=== PATIENT | female | born 1960 | race Asian ===

== ENCOUNTER 2017-05-30 07:32 | Inpatient (IN) | payer OTHER ==
[2017-05-30 09:03] LABS: ADD MAN DIFF? NO
[2017-05-30 09:05] LABS: ABNORMAL IP MESSAGE 1; BASOPHILS % 0.2 % (0.0-2.0); HEMOGLOBIN 10.8 g/dl (12.0-16.0); LYMPHOCYTES # 0.3 10^3/ul (0.8-2.9); LYMPHOCYTES % 3.7 % (15.0-51.0); MEAN CORPUSCULAR HEMOGLOBIN 29.8 pg (29.0-33.0); MEAN CORPUSCULAR VOLUME 99.2 fl (82.0-101.0); MONOCYTE # 0.7 10^3/ul (0.3-0.9); MONOCYTES % 7.8 % (0.0-11.0); NEUTROPHIL # 7.5 10^3/ul (1.6-7.5); NEUTROPHILS % 87.8 % (39.0-77.0); PLATELET COUNT 171 10^3/UL (140-415); RED BLOOD COUNT 3.63 10^6/ul (4.20-5.40); RED CELL DISTRIBUTION WIDTH 20.4 % (11.5-14.5)
[2017-05-30 09:05] LABS: WHITE BLOOD COUNT 8.5 10^3/ul (4.8-10.8)
[2017-05-30 09:11] LABS: POSITIVE DIFF @See below
[2017-05-30 09:36] LABS: ALANINE AMINOTRANSFERASE 30 IU/L (13-69); ALBUMIN 3.5 g/dl (3.3-4.9); ALKALINE PHOSPHATASE 273 IU/L (42-121); ANION GAP 14 (8-16); ASPARTATE AMINO TRANSFERASE 82 IU/L (15-46); BILIRUBIN,INDIRECT 0.3 mg/dl (0-1.1); BILIRUBIN,TOTAL 0.3 mg/dl (0.2-1.3); BLOOD UREA NITROGEN 43 mg/dl (7-20); CALCIUM 8.5 mg/dl (8.4-10.2); CARBON DIOXIDE 27 mmol/L (21-31); CHLORIDE 103 mmol/L (97-110); CREATININE 1.02 mg/dl (0.44-1.00); GLUCOSE 131 mg/dl (70-220); POTASSIUM 5.5 mmol/L (3.5-5.1); SODIUM 138 mmol/L (135-144); TOTAL PROTEIN 8.5 g/dl (6.1-8.1)
[2017-05-30 09:54] LABS: TROPONIN-I 0.143 ng/ml (0.00-0.12)
[2017-05-30 10:58] LABS: B-TYPE NATRIURETIC PEPTIDE 62900 PG/ML (0-125)
[2017-05-30] MEDS: FUROSEMIDE 40 MG INJ IV (13:54)
[2017-05-30 16:07] LABS: TROPONIN-I 0.121 ng/ml (0.00-0.12)
[2017-05-30] MEDS ORDERED: ONDANSETRON 4 MG INJ IV (17:00)
[2017-05-30] MEDS ORDERED: ACETAMINOPHEN 325 MG TAB PO (17:00)
[2017-05-30 17:36] LABS: INR 2.23; PROTIME 25.3 Sec (11.9-14.9)
[2017-05-30] MEDS: ACETAMINOPHEN 325 MG TAB GTB (19:15)
[2017-05-30] MEDS: SUCRALFATE 1 GM TAB GTB (19:16)
[2017-05-30 21:27] LABS: AADO2 Arterial 108.4 mmHg (7.0-24.0); Allen Test ACCEPTAB; Arterial Base Excess 5.9 mmol/L (-3.0-3); Arterial Blood Gas Oxygen Sat 98.6 mmHG (95.0-98.0); Arterial COHb 0.3 % (0.0-3.0); Arterial HCO3 29.7 mmol/L (22.0-26.0); Arterial MetHb 0.3 % (0.0-1.5); Arterial Total Hemglobin 10.5 g/dl (12.0-18.0); Arterial pCO2 40.2 mmhg (35-45); MODE VENT - AC; Site Right Radial
[2017-05-31] MEDS: SOD CHLORIDE 0.9% 1,000 ML IV (00:29)
[2017-05-31] MEDS: SUCRALFATE 1 GM TAB GTB ×5 (00:55→22:13)
[2017-05-31] MEDS: BUMETANIDE 1 MG TAB GTB (00:55)
[2017-05-31] MEDS: HYDROCODONE/APAP (5/325) TAB GTB ×2 (00:55→11:42)
[2017-05-31] MEDS: MAGNESIUM HYDROXIDE 30ML CUP GTB ×2 (00:55→21:00)
[2017-05-31] MEDS: FERROUS SULFATE 60 MG/ML 5ML CUP PO ×4 (00:56→22:12)
[2017-05-31] MEDS: DOCUSATE SODIUM 100 MG CAP PO ×2 (00:56→22:13)
[2017-05-31] MEDS: SENNA TAB GTB ×2 (00:56→22:13)
[2017-05-31] MEDS: ATORVASTATIN 20 MG TAB GTB ×2 (00:56→22:13)
[2017-05-31 06:18] LABS: ADD MAN DIFF? NO
[2017-05-31 06:31] LABS: INR 2.33; PROTIME 26.2 Sec (11.9-14.9)
[2017-05-31 06:40] LABS: ABNORMAL IP MESSAGE 1; BASOPHIL # 0.1 10^3/ul (0.0-0.1); BASOPHILS % 0.9 % (0.0-2.0); EOSINOPHILS # 0.1 10^3/ul (0.0-0.5); EOSINOPHILS % 1.9 % (0.0-7.0); HEMATOCRIT 29.4 % (37.0-47.0); HEMOGLOBIN 9.4 g/dl (12.0-16.0); LYMPHOCYTES # 0.5 10^3/ul (0.8-2.9); LYMPHOCYTES % 10.2 % (15.0-51.0); MEAN CORPUSCULAR HEMOGLOBIN 30.1 pg (29.0-33.0); MEAN CORPUSCULAR VOLUME 94.2 fl (82.0-101.0); MEAN PLATELET VOLUME 10.9 fl (7.4-10.4); MONOCYTE # 0.7 10^3/ul (0.3-0.9); MONOCYTES % 12.5 % (0.0-11.0); NEUTROPHIL # 3.9 10^3/ul (1.6-7.5); NEUTROPHILS % 74.1 % (39.0-77.0); PLATELET COUNT 142 10^3/UL (140-415); RED BLOOD COUNT 3.12 10^6/ul (4.20-5.40); RED CELL DISTRIBUTION WIDTH 19.8 % (11.5-14.5)
[2017-05-31 06:40] LABS: WHITE BLOOD COUNT 5.3 10^3/ul (4.8-10.8)
[2017-05-31 07:04] LABS: ANION GAP 13 (8-16); BLOOD UREA NITROGEN 43 mg/dl (7-20); CALCIUM 8.2 mg/dl (8.4-10.2); CARBON DIOXIDE 31 mmol/L (21-31); CHLORIDE 103 mmol/L (97-110); CREATININE 0.97 mg/dl (0.44-1.00); GLUCOSE 118 mg/dl (70-220); MAGNESIUM 2.2 mg/dl (1.7-2.5); POTASSIUM 3.7 mmol/L (3.5-5.1); SODIUM 143 mmol/L (135-144)
[2017-05-31 07:27] LABS: POSITIVE DIFF @See below
[2017-05-31] MEDS: AMLODIPINE 5 MG TAB GTB (09:00)
[2017-05-31] MEDS ORDERED: BENAZEPRIL 5 MG TAB GTB (09:00)
[2017-05-31] MEDS: NA PHOSPHATE/BIPHOS 133 ML ENEMA PR (09:00)
[2017-05-31] MEDS: BISACODYL 10 MG SUPP PR (09:00)
[2017-05-31] MEDS ORDERED: NON-FORMULARY/PATIENT OWN MED (Amino Acids/Protein Hydrolys (Pro-Stat Liquid) 30 ML) GTB (09:00)
[2017-05-31] MEDS ORDERED: NON-FORMULARY/PATIENT OWN MED (Cran/Vitc/Mannose/Inulin/Brom (Uti-Stat Liquid) 30 ML) GTB (09:00)
[2017-05-31] MEDS: PANTOPRAZOLE (EC) 40 MG TAB PO (10:35)
[2017-05-31] MEDS: BUMETANIDE 1 MG TAB PO (10:36)
[2017-05-31] MEDS: SEVELAMER 800 MG TAB GTB (10:36)
[2017-05-31] MEDS: MULTIVITAMINS/MINERALS TAB GTB (10:36)
[2017-05-31] MEDS: ASCORBIC ACID 500 MG TAB GTB (10:39)
[2017-05-31] MEDS ORDERED: PENDING SANTYL ORDER FOR WOUND CARE XX (15:00)
[2017-05-31 18:14] LABS: ADD UMIC YES; UR AMORPHOUS CRYSTAL FEW /HPF (NONE SEEN); UR ASCORBIC ACID 40 mg/dL (NEGATIVE); UR BACTERIA FEW /HPF (NONE SEEN); UR BILIRUBIN (Dip) NEGATIVE (NEGATIVE); UR BLOOD (Dip) 1+ mg/dL (NEGATIVE); UR CLARITY CLOUDY (CLEAR); UR COLOR YELLOW (YELLOW); UR GLUCOSE (Dip) NEGATIVE (NEGATIVE); UR KETONES (Dip) NEGATIVE (NEGATIVE); UR LEUKOCYTE ESTERASE (Dip) 3+ Leu/ul (NEGATIVE); UR NITRITE (Dip) NEGATIVE (NEGATIVE); UR RBC 6 /HPF (0-5); UR SPECIFIC GRAVITY (Dip) 1.009 (1.003-1.030); UR TOTAL PROTEIN (Dip) NEGATIVE (NEGATIVE); UR UROBILINOGEN (Dip) NEGATIVE (NEGATIVE); UR WBC 70 /HPF (0-5)
[2017-05-31 18:20] LABS: SODIUM,URINE RANDOM 91 mmol/L (30-90)
[2017-05-31 18:20] LABS: CREATININE,URINE RANDOM 24.35 mg/dl (20-320)
[2017-05-31] MEDS: WARFARIN 2 MG TAB GTB (18:29)
[2017-05-31] MEDS: WARFARIN 1 MG TAB PO (18:30)
[2017-06-01] MEDS: MULTIVITAMINS/MINERALS TAB GTB (08:52)
[2017-06-01] MEDS: PANTOPRAZOLE (EC) 40 MG TAB PO (08:52)
[2017-06-01] MEDS: FERROUS SULFATE 60 MG/ML 5ML CUP PO ×3 (08:52→21:34)
[2017-06-01] MEDS: ASCORBIC ACID 500 MG TAB GTB (08:52)
[2017-06-01] MEDS: SUCRALFATE 1 GM TAB GTB ×4 (08:52→21:34)
[2017-06-01] MEDS: SEVELAMER 800 MG TAB GTB (08:52)
[2017-06-01] MEDS: AMLODIPINE 5 MG TAB GTB (08:54)
[2017-06-01] MEDS: BISACODYL 10 MG SUPP PR (08:54)
[2017-06-01 08:57] LABS: ADD MAN DIFF? NO
[2017-06-01 09:12] LABS: ABNORMAL IP MESSAGE 1; BASOPHILS % 0.7 % (0.0-2.0); EOSINOPHILS # 0.3 10^3/ul (0.0-0.5); EOSINOPHILS % 4.6 % (0.0-7.0); HEMATOCRIT 29.2 % (37.0-47.0); HEMOGLOBIN 9.2 g/dl (12.0-16.0); LYMPHOCYTES # 0.5 10^3/ul (0.8-2.9); MEAN CORPUSCULAR HEMOGLOBIN 29.9 pg (29.0-33.0); MEAN CORPUSCULAR HGB CONC 31.5 g/dl (32.0-37.0); MEAN CORPUSCULAR VOLUME 94.8 fl (82.0-101.0); MEAN PLATELET VOLUME 11.3 fl (7.4-10.4); MONOCYTE # 0.7 10^3/ul (0.3-0.9); MONOCYTES % 12.5 % (0.0-11.0); PLATELET COUNT 147 10^3/UL (140-415); RED BLOOD COUNT 3.08 10^6/ul (4.20-5.40); RED CELL DISTRIBUTION WIDTH 19.6 % (11.5-14.5)
[2017-06-01 09:12] LABS: WHITE BLOOD COUNT 5.5 10^3/ul (4.8-10.8)
[2017-06-01 09:20] LABS: POSITIVE DIFF @See below
[2017-06-01 09:22] LABS: INR 2.22; PROTIME 25.2 Sec (11.9-14.9)
[2017-06-01 09:30] LABS: ANION GAP 11 (8-16); BLOOD UREA NITROGEN 38 mg/dl (7-20); CALCIUM 8.2 mg/dl (8.4-10.2); CARBON DIOXIDE 31 mmol/L (21-31); CHLORIDE 104 mmol/L (97-110); CREATININE 0.87 mg/dl (0.44-1.00); GLUCOSE 101 mg/dl (70-220); POTASSIUM 3.6 mmol/L (3.5-5.1); SODIUM 142 mmol/L (135-144)
[2017-06-01 09:34] LABS: PHOSPHORUS 2.4 mg/dl (2.5-4.9)
[2017-06-01 09:34] LABS: MAGNESIUM 2.1 mg/dl (1.7-2.5)
[2017-06-01] MEDS: COLLAGENASE 30 GM TUBE TOP (12:23)
[2017-06-01] MEDS: WARFARIN 1 MG TAB PO (17:41)
[2017-06-01] MEDS: WARFARIN 2 MG TAB GTB (17:42)
[2017-06-01] MEDS: DOCUSATE SODIUM 100 MG CAP PO (21:34)
[2017-06-01] MEDS: ATORVASTATIN 20 MG TAB GTB (21:34)
[2017-06-01] MEDS: SENNA TAB GTB (21:34)
[2017-06-01] MEDS: MAGNESIUM HYDROXIDE 30ML CUP GTB (21:35)
[2017-06-01] MEDS: HYDROCODONE/APAP (5/325) TAB GTB (23:04)
[2017-06-02] MEDS: NA PHOSPHATE/BIPHOS 133 ML ENEMA PR (08:08)
[2017-06-02] MEDS: BISACODYL 10 MG SUPP PR (09:00)
[2017-06-02] MEDS: SUCRALFATE 1 GM TAB GTB ×2 (09:08→12:30)
[2017-06-02] MEDS: MULTIVITAMINS/MINERALS TAB GTB (09:08)
[2017-06-02] MEDS: SEVELAMER 800 MG TAB GTB (09:08)
[2017-06-02] MEDS: ASCORBIC ACID 500 MG TAB GTB (09:08)
[2017-06-02] MEDS: PANTOPRAZOLE (EC) 40 MG TAB PO (09:08)
[2017-06-02] MEDS: FERROUS SULFATE 60 MG/ML 5ML CUP PO ×2 (09:08→12:30)
[2017-06-02] MEDS: COLLAGENASE 30 GM TUBE TOP (09:09)
[2017-06-02] MEDS: AMLODIPINE 5 MG TAB GTB (09:09)
[2017-06-02 09:23] LABS: PROTIME 30.3 Sec (11.9-14.9); PT RATIO 2.4
[2017-06-02] MEDS: MUPIROCIN 2% 22 GM OINT TOP (12:30)
[2017-06-02] MEDS: INFLUENZA VIRUS VACCINE 0.5 ML (DISPENSING) IM* (12:35)
== END 2017-06-02 16:10 | DRG 280 ==
LOC: TEL 16:56 → E/R 07:32
PROC: 5A1945Z Respiratory Ventilation, 24-96 Consecutive Hours (ICD-10-PCS; principal; 2017-05-30)
DX: I21.A1 Myocardial infarction type 2 (principal); L89.154 Pressure ulcer of sacral region, stage 4; I50.33 Acute on chronic diastolic (congestive) heart failure; N17.9 Acute kidney failure, unspecified; J96.10 Chronic respiratory failure, unspecified whether with hypoxia or hypercapnia; I11.0 Hypertensive heart disease with heart failure; I27.20 Pulmonary hypertension, unspecified; Z95.2 Presence of prosthetic heart valve; I48.2 Chronic atrial fibrillation; K29.70 Gastritis, unspecified, without bleeding; Z93.0 Tracheostomy status; Z93.1 Gastrostomy status; Z95.0 Presence of cardiac pacemaker
CPT/HCPCS: 36600; 71010; 80048; 80053; 81001; 82540; 82803; 83735; 83880; 84100; 84155; 84300; 84484; 85025; 85610; 87081; 90686; 93005; 94002; 94003

== ENCOUNTER 2017-07-19 20:25 | Emergency (ER) | payer OTHER ==
[2017-07-19] MEDS: LEVALBUTEROL (NEB) 1.25 MG/0.5 ML AMP HHN (21:25)
[2017-07-19] MEDS: morphine 4 MG/ML VIAL IV (22:33)
[2017-07-20] MEDS: morphine 4 MG/ML VIAL IV (02:49)
[2017-07-20] MEDS: ONDANSETRON (ODT) 4 MG TAB ODT (07:38)
[2017-07-20] MEDS: HYDROCODONE/APAP (10/325) TAB PO (07:38)
== END 2017-07-20 17:56 | disposition home or self-care (01) ==
LOC: E/R 07-20 17:56
DX: I27.0 Primary pulmonary hypertension (principal); I25.10 Atherosclerotic heart disease of native coronary artery without angina pectoris; E11.9 Type 2 diabetes mellitus without complications; I50.9 Heart failure, unspecified; I25.2 Old myocardial infarction; Z79.01 Long term (current) use of anticoagulants
CPT/HCPCS: 94002; 94003; 94644; 96374; 96376; 99284-25

== ENCOUNTER 2017-09-26 06:05 | Inpatient (IN) | payer OTHER ==
[2017-09-26 07:11] LABS: ABNORMAL IP MESSAGE 1; HEMOGLOBIN 8.9 g/dl (12.0-16.0); MEAN CORPUSCULAR HEMOGLOBIN 28.5 pg (29.0-33.0); MEAN CORPUSCULAR HGB CONC 30.7 g/dl (32.0-37.0); MEAN CORPUSCULAR VOLUME 92.9 fl (82.0-101.0); NUCLEATED RED BLOOD CELLS% 0.1 /100WBC (0.0-0.0); PLATELET COUNT 173 10^3/UL (140-415); RED BLOOD COUNT 3.12 10^6/ul (4.20-5.40); RED CELL DISTRIBUTION WIDTH 17.6 % (11.5-14.5)
[2017-09-26 07:11] LABS: WHITE BLOOD COUNT 15.5 10^3/ul (4.8-10.8)
[2017-09-26 07:23] LABS: ADD MAN DIFF? YES; POSITIVE DIFF @See below
[2017-09-26] MEDS: SOD CHLORIDE 0.9% IV (07:23)
[2017-09-26] MEDS: PIPER-TAZO 3.375 GM IV (PMX) 100 ML IVPB ×2 (07:23→12:00)
[2017-09-26 07:37] LABS: INR 3.82; PROTIME 38.9 Sec (11.9-14.9)
[2017-09-26 07:40] LABS: ALANINE AMINOTRANSFERASE 12 IU/L (13-69); ALBUMIN 3.6 g/dl (3.3-4.9); ALKALINE PHOSPHATASE 356 IU/L (42-121); ANION GAP 22 (8-16); ASPARTATE AMINO TRANSFERASE 78 IU/L (15-46); BILIRUBIN,INDIRECT 0.8 mg/dl (0-1.1); BILIRUBIN,TOTAL 0.8 mg/dl (0.2-1.3); BLOOD UREA NITROGEN 40 mg/dl (7-20); CALCIUM 8.9 mg/dl (8.4-10.2); CARBON DIOXIDE 21 mmol/L (21-31); CHLORIDE 103 mmol/L (97-110); GLUCOSE 79 mg/dl (70-220); POTASSIUM 4.7 mmol/L (3.5-5.1); SODIUM 141 mmol/L (135-144); TOTAL PROTEIN 8.7 g/dl (6.1-8.1)
[2017-09-26 07:41] LABS: LACTIC ACID 7.4 mmol/L (0.5-2.0)
[2017-09-26 07:41] LABS: ETHANOL < 10.0 mg/dl; SALICYLATE < 1.0 mg/dl (5.0-30.0)
[2017-09-26 07:42] LABS: PARTIAL THROMBOPLASTIN TIME 97.7 Sec (25.0-35.0)
[2017-09-26 07:51] LABS: TROPONIN-I 0.052 ng/ml (0.00-0.12)
[2017-09-26 07:56] LABS: ANISOCYTOSIS 1+ (0-0); BAND NEUTROPHILS #M 4.1 10^3/ul (0.0-0.6); BAND NEUTROPHILS % (M) 27 % (0-4); BURR CELLS 1+ (0-0); EOSINOPHILS % (M) 1 % (0-7); GIANT THROMBO% (M) 1 % (0-0); LYMPHOCYTES #M 1.8 10^3/ul (0.8-2.9); LYMPHOCYTES % (M) 12 % (15-51); MONOCYTE #M 0.9 10^3/ul (0.3-0.9); MONOCYTES % (M) 6 % (0-11); PLATELET ESTIMATE NORMAL; POIKILOCYTOSIS 1+ (0-0); POLYCHROMASIA 3+ (0-0); SEGMENTED NEUTROPHILS (M) % 54 % (39-77); SMUDGE%M 2 % (0-0)
[2017-09-26 08:25] LABS: ADD UMIC YES; UR ASCORBIC ACID 40 mg/dL (NEGATIVE); UR BACTERIA FEW /HPF (NONE SEEN); UR BILIRUBIN (Dip) NEGATIVE (NEGATIVE); UR BLOOD (Dip) 1+ mg/dL (NEGATIVE); UR CLARITY SLIGHTLY CLOUDY (CLEAR); UR COLOR YELLOW (YELLOW); UR GLUCOSE (Dip) NEGATIVE (NEGATIVE); UR KETONES (Dip) TRACE mg/dL (NEGATIVE); UR LEUKOCYTE ESTERASE (Dip) TRACE Leu/ul (NEGATIVE); UR NITRITE (Dip) NEGATIVE (NEGATIVE); UR RBC 8 /HPF (0-5); UR SPECIFIC GRAVITY (Dip) 1.016 (1.003-1.030); UR TOTAL PROTEIN (Dip) 2+ mg/dl (NEGATIVE); UR UROBILINOGEN (Dip) 1+ mg/dL (NEGATIVE); UR WBC 8 /HPF (0-5)
[2017-09-26 08:37] LABS: LACTIC ACID 1.4 mmol/L (0.5-2.0)
[2017-09-26 08:38] LABS: AMPHETAMINE/METHAMPHETAMINE Negative (NEGATIVE); BARBITURATES Negative (NEGATIVE); BENZODIAZEPINES Negative (NEGATIVE); CANNABINOIDS Negative (NEGATIVE); COCAINE Negative (NEGATIVE); OPIATES Positive (NEGATIVE)
[2017-09-26] MEDS ORDERED: ONDANSETRON 4 MG INJ IV ×2 (10:30→11:30)
[2017-09-26] MEDS ORDERED: ACETAMINOPHEN 325 MG TAB PO (10:30)
[2017-09-26 13:08] LABS: CREATINE KINASE 54 IU/L (23-200)
[2017-09-26 13:08] LABS: GAMMA GLUTAMYL TRANSPEPTIDASE 330 IU/L (0-50)
[2017-09-26 13:20] LABS: CK INDEX 2.5; CK-MB 1.35 ng/ml (0.0-2.4); TROPONIN-I 0.079 ng/ml (0.00-0.12)
[2017-09-26] MEDS: SOD CHLORIDE 0.9% 1,000 ML IV ×2 (13:30→23:57)
[2017-09-26] MEDS: LORAZEPAM 2 MG INJ IV (13:57)
[2017-09-26] MEDS ORDERED: LORAZEPAM 2 MG INJ IV (14:00)
[2017-09-26] MEDS: DILTIAZEM 25 MG INJ IV (14:27)
[2017-09-26] MEDS ORDERED: VANCOMYCIN IV PER PHARMACY XX (14:30)
[2017-09-26] MEDS: VANCOMYCIN 1 GM 250 ML IVPB (14:32)
[2017-09-26] MEDS: LEVETIRACETAM 500 MG (PMX) 100 ML IVPB (14:41)
[2017-09-26 14:45] LABS: WHITE BLOOD COUNT 11.5 10^3/ul (4.8-10.8)
[2017-09-26 14:45] LABS: ABNORMAL IP MESSAGE 1; HEMATOCRIT 27.7 % (37.0-47.0); HEMOGLOBIN 8.7 g/dl (12.0-16.0); MEAN CORPUSCULAR HEMOGLOBIN 28.2 pg (29.0-33.0); MEAN CORPUSCULAR HGB CONC 31.4 g/dl (32.0-37.0); MEAN CORPUSCULAR VOLUME 89.6 fl (82.0-101.0); MEAN PLATELET VOLUME 10.7 fl (7.4-10.4); PLATELET COUNT 131 10^3/UL (140-415); RED BLOOD COUNT 3.09 10^6/ul (4.20-5.40); RED CELL DISTRIBUTION WIDTH 17.2 % (11.5-14.5)
[2017-09-26 14:46] LABS: ADD MAN DIFF? YES; POSITIVE DIFF @See below
[2017-09-26 15:37] LABS: MAGNESIUM 2.3 mg/dl (1.7-2.5)
[2017-09-26 16:11] LABS: ANISOCYTOSIS 1+ (0-0); BAND NEUTROPHILS #M 2.9 10^3/ul (0.0-0.6); BAND NEUTROPHILS % (M) 26 % (0-4); BURR CELLS 1+ (0-0); GIANT THROMBO% (M) 1 % (0-0); LYMPHOCYTES #M 0.3 10^3/ul (0.8-2.9); LYMPHOCYTES % (M) 3 % (15-51); MONOCYTE #M 0.3 10^3/ul (0.3-0.9); MONOCYTES % (M) 3 % (0-11); PLATELET ESTIMATE NORMAL; POIKILOCYTOSIS 1+ (0-0); SEG NEUT #M 8.2 10^3/ul (1.6-7.5); SEGMENTED NEUTROPHILS (M) % 68 % (39-77); SMUDGE%M 3 % (0-0)
[2017-09-26 17:00] LABS: CREATINE KINASE 72 IU/L (23-200)
[2017-09-26 17:14] LABS: CK INDEX 2.1; CK-MB 1.52 ng/ml (0.0-2.4); TROPONIN-I 0.084 ng/ml (0.00-0.12)
[2017-09-26] MEDS: PIPER-TAZO 2.25 GM (PMX) 50 ML IVPB (18:13)
[2017-09-26] MEDS: PHENYTOIN 1,000 MG in SOD CHLORIDE 0.9% 100 ML IV (18:22)
[2017-09-26 20:41] LABS: HEMATOCRIT 27.7 % (37.0-47.0); HEMOGLOBIN 8.8 g/dl (12.0-16.0)
[2017-09-26] MEDS ORDERED: LEVETIRACETAM 500 MG (PMX) 100 ML IVPB (21:00)
[2017-09-26] MEDS: LEVETIRACETAM 1500 MG (PMX) 100 ML IVPB (21:21)
[2017-09-26] MEDS: PHENYTOIN 100 MG INJ IV (22:20)
[2017-09-27] MEDS: PIPER-TAZO 2.25 GM (PMX) 50 ML IVPB ×5 (00:08→23:49)
[2017-09-27] MEDS: SOD CHLORIDE 0.9% 500 ML IV (01:19)
[2017-09-27 02:25] LABS: WHITE BLOOD COUNT 12.8 10^3/ul (4.8-10.8)
[2017-09-27 02:25] LABS: ABNORMAL IP MESSAGE 1; HEMATOCRIT 27.6 % (37.0-47.0); HEMOGLOBIN 8.5 g/dl (12.0-16.0); MEAN CORPUSCULAR HEMOGLOBIN 27.7 pg (29.0-33.0); MEAN CORPUSCULAR HGB CONC 30.8 g/dl (32.0-37.0); MEAN CORPUSCULAR VOLUME 89.9 fl (82.0-101.0); PLATELET COUNT 185 10^3/UL (140-415); RED BLOOD COUNT 3.07 10^6/ul (4.20-5.40); RED CELL DISTRIBUTION WIDTH 17.5 % (11.5-14.5)
[2017-09-27 02:28] LABS: POSITIVE DIFF @See below
[2017-09-27 02:29] LABS: ADD MAN DIFF? YES
[2017-09-27] MEDS: SOD CHLORIDE 0.9% 1,000 ML IV ×2 (02:30→09:36)
[2017-09-27 02:39] LABS: INR 5.16; PROTIME 49.4 Sec (11.9-14.9); PT RATIO 3.9
[2017-09-27 02:43] LABS: AMMONIA 12 umol/l (9-30)
[2017-09-27 02:44] LABS: ALANINE AMINOTRANSFERASE 27 IU/L (13-69); ALBUMIN 2.7 g/dl (3.3-4.9); ALKALINE PHOSPHATASE 294 IU/L (42-121); ANION GAP 23 (8-16); ASPARTATE AMINO TRANSFERASE 30 IU/L (15-46); BILIRUBIN,INDIRECT 0.5 mg/dl (0-1.1); BILIRUBIN,TOTAL 0.5 mg/dl (0.2-1.3); BLOOD UREA NITROGEN 41 mg/dl (7-20); CALCIUM 7.9 mg/dl (8.4-10.2); CARBON DIOXIDE 16 mmol/L (21-31); CHLORIDE 109 mmol/L (97-110); CREATININE 1.15 mg/dl (0.44-1.00); GLUCOSE 53 mg/dl (70-220); MAGNESIUM 2.3 mg/dl (1.7-2.5); SODIUM 145 mmol/L (135-144); TOTAL PROTEIN 7.2 g/dl (6.1-8.1)
[2017-09-27 02:46] LABS: PHENYTOIN (DILANTIN) 16.4 ug/ml (10.0-20.0)
[2017-09-27 02:51] LABS: HEMOGLOBIN A1C 4.9 % (0-5.9)
[2017-09-27] MEDS: D5W-0.45 NACL + KCL 20 MEQ 1,000 ML IV (03:37)
[2017-09-27 03:38] LABS: THYROID STIMULATING HORMONE 0.712 MIU/L (0.465-4.680)
[2017-09-27 04:15] LABS: ANISOCYTOSIS 1+ (0-0); BAND NEUTROPHILS #M 1.7 10^3/ul (0.0-0.6); BAND NEUTROPHILS % (M) 14 % (0-4); EOSINOPHILS % (M) 1 % (0-7); HYPOCHROMASIA 1+ (0-0); LYMPHOCYTES #M 0.5 10^3/ul (0.8-2.9); LYMPHOCYTES % (M) 4 % (15-51); MONOCYTE #M 0.3 10^3/ul (0.3-0.9); MONOCYTES % (M) 3 % (0-11); PLATELET ESTIMATE NORMAL; POIKILOCYTOSIS 1+ (0-0); POLYCHROMASIA 2+ (0-0); SEG NEUT #M 10.2 10^3/ul (1.6-7.5); SEGMENTED NEUTROPHILS (M) % 78 % (39-77); SMUDGE%M 1 % (0-0)
[2017-09-27] MEDS: PANTOPRAZOLE 40 MG INJ IV (05:46)
[2017-09-27] MEDS: PHENYTOIN 100 MG INJ IV ×3 (05:46→21:21)
[2017-09-27] MEDS: ACCU-CHEK XX ×4 (07:05→20:22)
[2017-09-27] MEDS: LEVETIRACETAM 1500 MG (PMX) 100 ML IVPB ×2 (08:17→20:10)
[2017-09-27 08:44] LABS: HEMATOCRIT 30.7 % (37.0-47.0); HEMOGLOBIN 9.6 g/dl (12.0-16.0)
[2017-09-27] MEDS: DILTIAZEM-D5W 125MG/125ML DRIP 125 ML IV (08:48)
[2017-09-27] MEDS ORDERED: GLUCAGON 1 MG INJ IM (09:30)
[2017-09-27] MEDS ORDERED: DEXTROSE 50% 50 ML SYRINGE IV (09:30)
[2017-09-27] MEDS: DEXTROSE 50% 50 ML SYRINGE IV (09:30)
[2017-09-27] MEDS ORDERED: ALBUTEROL 0.083% (NEB) 2.5 MG/3 ML AMP NEB (09:30)
[2017-09-27] MEDS ORDERED: GLUCOSE GEL 15 GRAM TUBE PO ×2 (09:30)
[2017-09-27] MEDS ORDERED: GLUCOSE GEL 15 GRAM TUBE BUCCAL (09:30)
[2017-09-27] MEDS ORDERED: DILTIAZEM-D5W 125MG/125ML DRIP 125 ML IV (09:30)
[2017-09-27] MEDS: AMIODARONE 150MG/D5W BOLUS 100 ML IV (09:42)
[2017-09-27] MEDS: DEXTROSE 5%-0.45% NACL 1,000 ML IV ×2 (10:38→19:30)
[2017-09-27] MEDS: POTASSIUM CHLORIDE 100 ML IVPB ×3 (10:38→15:59)
[2017-09-27] MEDS: SEVELAMER CARBONATE 0.8 GM PKT GTB ×2 (11:12→17:26)
[2017-09-27] MEDS: SUCRALFATE 1 GM TAB GTB ×3 (11:12→20:10)
[2017-09-27] MEDS: metroNIDAZOLE 500 MG TAB GTB ×2 (11:15→21:21)
[2017-09-27] MEDS: INSULIN ASPART [NOVOLOG] 3 ML PEN SC ×3 (13:00→20:20)
[2017-09-27] MEDS: DIGOXIN 500 MCG INJ IV ×3 (13:37→23:45)
[2017-09-27] MEDS: AMIODARONE 900 MG in DEXTROSE 5% 482 ML IV (14:16)
[2017-09-27 14:24] LABS: HEMATOCRIT 31.6 % (37.0-47.0); HEMOGLOBIN 9.7 g/dl (12.0-16.0)
[2017-09-27] MEDS ORDERED: VANCOMYCIN 500MG/NS (PMX) 100 ML IVPB ×2 (15:00→17:00)
[2017-09-27] MEDS: ATORVASTATIN 20 MG TAB GTB (20:10)
[2017-09-27] MEDS: VANCOMYCIN 500MG/NS (PMX) 100 ML IVPB (20:21)
[2017-09-27 20:22] LABS: HEMATOCRIT 28.3 % (37.0-47.0); HEMOGLOBIN 8.8 g/dl (12.0-16.0)
[2017-09-28] MEDS: ACCU-CHEK XX ×5 (01:11→21:37)
[2017-09-28] MEDS: INSULIN ASPART [NOVOLOG] 3 ML PEN SC ×6 (01:11→21:35)
[2017-09-28] MEDS: PIPER-TAZO 2.25 GM (PMX) 50 ML IVPB (05:13)
[2017-09-28] MEDS: metroNIDAZOLE 500 MG TAB GTB ×3 (05:13→21:31)
[2017-09-28] MEDS: PANTOPRAZOLE 40 MG INJ IV (05:13)
[2017-09-28] MEDS: PHENYTOIN 100 MG INJ IV ×3 (05:14→21:37)
[2017-09-28 05:24] LABS: ADD MAN DIFF? NO
[2017-09-28] MEDS: DEXTROSE 5%-0.45% NACL 1,000 ML IV (05:24)
[2017-09-28 05:29] LABS: ABNORMAL IP MESSAGE 1; BASOPHIL # 0.1 10^3/ul (0.0-0.1); BASOPHILS % 0.4 % (0.0-2.0); EOSINOPHILS # 0.1 10^3/ul (0.0-0.5); EOSINOPHILS % 0.8 % (0.0-7.0); HEMATOCRIT 27.1 % (37.0-47.0); HEMOGLOBIN 8.7 g/dl (12.0-16.0); LYMPHOCYTES # 0.5 10^3/ul (0.8-2.9); MEAN CORPUSCULAR HEMOGLOBIN 28.1 pg (29.0-33.0); MEAN CORPUSCULAR HGB CONC 32.1 g/dl (32.0-37.0); MEAN CORPUSCULAR VOLUME 87.4 fl (82.0-101.0); MONOCYTE # 0.6 10^3/ul (0.3-0.9); MONOCYTES % 5.8 % (0.0-11.0); NEUTROPHIL # 9.8 10^3/ul (1.6-7.5); NEUTROPHILS % 88.3 % (39.0-77.0); PLATELET COUNT 187 10^3/UL (140-415); RED CELL DISTRIBUTION WIDTH 17.7 % (11.5-14.5)
[2017-09-28 05:29] LABS: WHITE BLOOD COUNT 11.1 10^3/ul (4.8-10.8)
[2017-09-28 05:50] LABS: PROTIME 92.5 Sec (11.9-14.9); PT RATIO 7.2
[2017-09-28 06:05] LABS: ALANINE AMINOTRANSFERASE 22 IU/L (13-69); ALBUMIN 2.4 g/dl (3.3-4.9); ALBUMIN/GLOBULIN RATIO 0.58; ALKALINE PHOSPHATASE 240 IU/L (42-121); ANION GAP 14 (8-16); ASPARTATE AMINO TRANSFERASE 23 IU/L (15-46); BILIRUBIN,INDIRECT 0.2 mg/dl (0-1.1); BILIRUBIN,TOTAL 0.2 mg/dl (0.2-1.3); BLOOD UREA NITROGEN 42 mg/dl (7-20); CALCIUM 7.4 mg/dl (8.4-10.2); CARBON DIOXIDE 20 mmol/L (21-31); CHLORIDE 110 mmol/L (97-110); CREATININE 1.35 mg/dl (0.44-1.00); GLUCOSE 161 mg/dl (70-220); MAGNESIUM 2.4 mg/dl (1.7-2.5); POTASSIUM 3.9 mmol/L (3.5-5.1); SODIUM 140 mmol/L (135-144); TOTAL PROTEIN 6.5 g/dl (6.1-8.1)
[2017-09-28 06:21] LABS: PHENYTOIN (DILANTIN) 15.9 ug/ml (10.0-20.0)
[2017-09-28 06:40] LABS: POSITIVE DIFF @See below
[2017-09-28 07:16] LABS: INR 11.29
[2017-09-28] MEDS: SUCRALFATE 1 GM TAB GTB ×4 (08:46→21:31)
[2017-09-28] MEDS: SEVELAMER CARBONATE 0.8 GM PKT GTB ×3 (08:46→16:55)
[2017-09-28] MEDS: PHYTONADIONE 10 MG/ML INJ SC (08:47)
[2017-09-28] MEDS: LEVETIRACETAM 1500 MG (PMX) 100 ML IVPB ×2 (08:47→21:30)
[2017-09-28] MEDS: ZINC SULFATE 220 MG CAP GTB (08:47)
[2017-09-28] MEDS ORDERED: EPOETIN 4000 UNITS/ML VIAL (ONCOLOGY) SC (09:00)
[2017-09-28] MEDS: BUMETANIDE 1 MG INJ IV ×2 (11:27→17:19)
[2017-09-28] MEDS: ATORVASTATIN 20 MG TAB GTB (21:30)
[2017-09-29] MEDS: INSULIN ASPART [NOVOLOG] 3 ML PEN SC ×6 (00:40→22:20)
[2017-09-29] MEDS: ACCU-CHEK XX ×3 (02:00→11:00)
[2017-09-29 05:37] LABS: ADD MAN DIFF? NO
[2017-09-29 05:43] LABS: ABNORMAL IP MESSAGE 1; BASOPHIL # 0.1 10^3/ul (0.0-0.1); BASOPHILS % 0.5 % (0.0-2.0); EOSINOPHILS # 0.3 10^3/ul (0.0-0.5); EOSINOPHILS % 2.9 % (0.0-7.0); HEMATOCRIT 26.3 % (37.0-47.0); HEMOGLOBIN 8.5 g/dl (12.0-16.0); LYMPHOCYTES # 0.4 10^3/ul (0.8-2.9); LYMPHOCYTES % 4.8 % (15.0-51.0); MEAN CORPUSCULAR HEMOGLOBIN 27.4 pg (29.0-33.0); MEAN CORPUSCULAR HGB CONC 32.3 g/dl (32.0-37.0); MEAN CORPUSCULAR VOLUME 84.8 fl (82.0-101.0); MEAN PLATELET VOLUME 10.5 fl (7.4-10.4); MONOCYTE # 0.6 10^3/ul (0.3-0.9); MONOCYTES % 6.4 % (0.0-11.0); NEUTROPHIL # 7.8 10^3/ul (1.6-7.5); NEUTROPHILS % 84.7 % (39.0-77.0); PLATELET COUNT 197 10^3/UL (140-415); RED CELL DISTRIBUTION WIDTH 17.5 % (11.5-14.5)
[2017-09-29 05:43] LABS: WHITE BLOOD COUNT 9.2 10^3/ul (4.8-10.8)
[2017-09-29 05:49] LABS: POSITIVE DIFF @See below
[2017-09-29 06:01] LABS: INR 4.99; PROTIME 48.1 Sec (11.9-14.9); PT RATIO 3.8
[2017-09-29 06:10] LABS: ALANINE AMINOTRANSFERASE 18 IU/L (13-69); ALBUMIN 2.3 g/dl (3.3-4.9); ALBUMIN/GLOBULIN RATIO 0.53; ALKALINE PHOSPHATASE 220 IU/L (42-121); ANION GAP 13 (8-16); ASPARTATE AMINO TRANSFERASE 20 IU/L (15-46); BILIRUBIN,INDIRECT 0.1 mg/dl (0-1.1); BILIRUBIN,TOTAL 0.1 mg/dl (0.2-1.3); BLOOD UREA NITROGEN 41 mg/dl (7-20); CALCIUM 7.3 mg/dl (8.4-10.2); CARBON DIOXIDE 21 mmol/L (21-31); CHLORIDE 110 mmol/L (97-110); CREATININE 1.26 mg/dl (0.44-1.00); GLUCOSE 151 mg/dl (70-220); MAGNESIUM 2.3 mg/dl (1.7-2.5); POTASSIUM 3.4 mmol/L (3.5-5.1); SODIUM 141 mmol/L (135-144); TOTAL PROTEIN 6.6 g/dl (6.1-8.1)
[2017-09-29] MEDS: metroNIDAZOLE 500 MG TAB GTB ×3 (06:41→22:18)
[2017-09-29] MEDS: PHENYTOIN 100 MG INJ IV ×3 (06:41→22:22)
[2017-09-29] MEDS: BUMETANIDE 1 MG INJ IV ×2 (06:41→18:24)
[2017-09-29] MEDS: SEVELAMER CARBONATE 0.8 GM PKT GTB ×3 (06:42→16:47)
[2017-09-29] MEDS: SUCRALFATE 1 GM TAB GTB ×4 (06:42→22:18)
[2017-09-29] MEDS: PANTOPRAZOLE 40 MG INJ IV (06:42)
[2017-09-29 07:04] LABS: DIGOXIN 1.8 ng/ml (1.0-2.0)
[2017-09-29] MEDS: ZINC SULFATE 220 MG CAP GTB (09:35)
[2017-09-29] MEDS: LEVETIRACETAM 1500 MG (PMX) 100 ML IVPB ×2 (09:35→22:21)
[2017-09-29] MEDS: POTASSIUM CHLORIDE 20 MEQ POWDER FOR ORAL SOLN GTB (16:48)
[2017-09-29] MEDS: ATORVASTATIN 20 MG TAB GTB (22:18)
[2017-09-30] MEDS: INSULIN ASPART [NOVOLOG] 3 ML PEN SC ×6 (01:00→21:00)
[2017-09-30] MEDS: ACCU-CHEK XX (01:53)
[2017-09-30] MEDS: metroNIDAZOLE 500 MG TAB GTB ×3 (05:41→21:37)
[2017-09-30] MEDS: PANTOPRAZOLE 40 MG INJ IV (05:41)
[2017-09-30] MEDS: BUMETANIDE 1 MG INJ IV (05:41)
[2017-09-30] MEDS: PHENYTOIN 100 MG INJ IV ×3 (05:41→21:37)
[2017-09-30 08:20] LABS: ADD MAN DIFF? NO
[2017-09-30 08:23] LABS: ABNORMAL IP MESSAGE 1; BASOPHILS % 0.5 % (0.0-2.0); EOSINOPHILS # 0.3 10^3/ul (0.0-0.5); EOSINOPHILS % 4.3 % (0.0-7.0); HEMATOCRIT 26.7 % (37.0-47.0); HEMOGLOBIN 8.3 g/dl (12.0-16.0); LYMPHOCYTES # 0.5 10^3/ul (0.8-2.9); MEAN CORPUSCULAR HEMOGLOBIN 27.1 pg (29.0-33.0); MEAN CORPUSCULAR HGB CONC 31.1 g/dl (32.0-37.0); MEAN CORPUSCULAR VOLUME 87.3 fl (82.0-101.0); MEAN PLATELET VOLUME 10.9 fl (7.4-10.4); MONOCYTE # 0.6 10^3/ul (0.3-0.9); MONOCYTES % 7.2 % (0.0-11.0); NEUTROPHIL # 6.2 10^3/ul (1.6-7.5); NEUTROPHILS % 80.5 % (39.0-77.0); PLATELET COUNT 233 10^3/UL (140-415); RED BLOOD COUNT 3.06 10^6/ul (4.20-5.40); RED CELL DISTRIBUTION WIDTH 17.8 % (11.5-14.5)
[2017-09-30 08:23] LABS: WHITE BLOOD COUNT 7.7 10^3/ul (4.8-10.8)
[2017-09-30 08:26] LABS: POSITIVE DIFF @See below
[2017-09-30] MEDS: ZINC SULFATE 220 MG CAP GTB (08:36)
[2017-09-30] MEDS: SEVELAMER CARBONATE 0.8 GM PKT GTB ×3 (08:37→17:39)
[2017-09-30] MEDS: SUCRALFATE 1 GM TAB GTB ×4 (08:38→21:20)
[2017-09-30 08:45] LABS: ALANINE AMINOTRANSFERASE 19 IU/L (13-69); ALBUMIN 2.3 g/dl (3.3-4.9); ALBUMIN/GLOBULIN RATIO 0.53; ALKALINE PHOSPHATASE 206 IU/L (42-121); ANION GAP 13 (8-16); ASPARTATE AMINO TRANSFERASE 23 IU/L (15-46); BILIRUBIN,INDIRECT 0.1 mg/dl (0-1.1); BILIRUBIN,TOTAL 0.1 mg/dl (0.2-1.3); BLOOD UREA NITROGEN 39 mg/dl (7-20); CALCIUM 7.6 mg/dl (8.4-10.2); CARBON DIOXIDE 24 mmol/L (21-31); CHLORIDE 110 mmol/L (97-110); CREATININE 1.05 mg/dl (0.44-1.00); GLUCOSE 124 mg/dl (70-220); MAGNESIUM 2.2 mg/dl (1.7-2.5); POTASSIUM 3.7 mmol/L (3.5-5.1); SODIUM 143 mmol/L (135-144); TOTAL PROTEIN 6.6 g/dl (6.1-8.1)
[2017-09-30 08:52] LABS: INR 4.73; PROTIME 46.1 Sec (11.9-14.9); PT RATIO 3.6
[2017-09-30] MEDS: LEVETIRACETAM 1500 MG (PMX) 100 ML IVPB ×2 (09:23→21:19)
[2017-09-30] MEDS: POTASSIUM CHLORIDE 20 MEQ POWDER FOR ORAL SOLN NGT (11:27)
[2017-09-30] MEDS: DEXTROSE 5% IV (17:39)
[2017-09-30] MEDS: BUMETANIDE IV (17:39)
[2017-09-30] MEDS ORDERED: BUMETANIDE 1 MG INJ IV (18:00)
[2017-09-30] MEDS: ATORVASTATIN 20 MG TAB GTB (21:20)
[2017-10-01] MEDS: INSULIN ASPART [NOVOLOG] 3 ML PEN SC ×6 (01:00→21:00)
[2017-10-01] MEDS: ACCU-CHEK XX (01:21)
[2017-10-01] MEDS: metroNIDAZOLE 500 MG TAB GTB ×3 (05:48→21:13)
[2017-10-01] MEDS: PANTOPRAZOLE 40 MG INJ IV (05:49)
[2017-10-01] MEDS: PHENYTOIN 100 MG INJ IV ×3 (05:49→22:39)
[2017-10-01] MEDS: DEXTROSE 5% IV ×2 (06:04→17:24)
[2017-10-01] MEDS: BUMETANIDE IV ×2 (06:04→17:24)
[2017-10-01] MEDS: SEVELAMER CARBONATE 0.8 GM PKT GTB ×3 (07:54→17:24)
[2017-10-01] MEDS: SUCRALFATE 1 GM TAB GTB ×4 (07:54→21:13)
[2017-10-01 08:16] LABS: WHITE BLOOD COUNT 24.5 10^3/ul (4.8-10.8)
[2017-10-01 08:16] LABS: ABNORMAL IP MESSAGE 1; HEMATOCRIT 27.1 % (37.0-47.0); HEMOGLOBIN 8.7 g/dl (12.0-16.0); MEAN CORPUSCULAR HEMOGLOBIN 27.6 pg (29.0-33.0); MEAN CORPUSCULAR HGB CONC 32.1 g/dl (32.0-37.0); MEAN PLATELET VOLUME 10.3 fl (7.4-10.4); PLATELET COUNT 279 10^3/UL (140-415); RED BLOOD COUNT 3.15 10^6/ul (4.20-5.40); RED CELL DISTRIBUTION WIDTH 18.3 % (11.5-14.5)
[2017-10-01 08:26] LABS: ADD MAN DIFF? YES; POSITIVE DIFF @See below
[2017-10-01 08:35] LABS: ALANINE AMINOTRANSFERASE 21 IU/L (13-69); ALBUMIN 2.5 g/dl (3.3-4.9); ALBUMIN/GLOBULIN RATIO 0.56; ALKALINE PHOSPHATASE 223 IU/L (42-121); ANION GAP 9 (8-16); ASPARTATE AMINO TRANSFERASE 25 IU/L (15-46); BILIRUBIN,INDIRECT 0.1 mg/dl (0-1.1); BILIRUBIN,TOTAL 0.1 mg/dl (0.2-1.3); BLOOD UREA NITROGEN 37 mg/dl (7-20); CALCIUM 7.9 mg/dl (8.4-10.2); CARBON DIOXIDE 26 mmol/L (21-31); CHLORIDE 112 mmol/L (97-110); CREATININE 0.96 mg/dl (0.44-1.00); GLUCOSE 171 mg/dl (70-220); MAGNESIUM 2.2 mg/dl (1.7-2.5); POTASSIUM 4.3 mmol/L (3.5-5.1); SODIUM 143 mmol/L (135-144); TOTAL PROTEIN 6.9 g/dl (6.1-8.1)
[2017-10-01 08:38] LABS: INR 4.72; PT RATIO 3.6
[2017-10-01] MEDS: LEVETIRACETAM 1500 MG (PMX) 100 ML IVPB ×2 (08:52→21:13)
[2017-10-01] MEDS: ZINC SULFATE 220 MG CAP GTB (08:52)
[2017-10-01 10:27] LABS: ANISOCYTOSIS 1+ (0-0); BAND NEUTROPHILS #M 6.3 10^3/ul (0.0-0.6); BAND NEUTROPHILS % (M) 26 % (0-4); EOSINOPHILS % (M) 1 % (0-7); HYPOCHROMASIA 1+ (0-0); MONOCYTE #M 0.2 10^3/ul (0.3-0.9); MONOCYTES % (M) 1 % (0-11); PLATELET ESTIMATE NORMAL; POLYCHROMASIA 1+ (0-0); SEG NEUT #M 19.2 10^3/ul (1.6-7.5); SEGMENTED NEUTROPHILS (M) % 72 % (39-77); SMUDGE%M 2 % (0-0)
[2017-10-01] MEDS: DIGOXIN 0.125 MG TAB PO (13:30)
[2017-10-01] MEDS: ATORVASTATIN 20 MG TAB GTB (21:13)
[2017-10-02] MEDS: INSULIN ASPART [NOVOLOG] 3 ML PEN SC ×6 (01:00→21:00)
[2017-10-02] MEDS: ACCU-CHEK XX (02:00)
[2017-10-02] MEDS ORDERED: PENDING SANTYL ORDER FOR WOUND CARE XX (04:00)
[2017-10-02] MEDS: PANTOPRAZOLE 40 MG INJ IV (05:12)
[2017-10-02] MEDS: DEXTROSE 5% IV ×2 (05:13→18:02)
[2017-10-02] MEDS: BUMETANIDE IV ×2 (05:13→18:02)
[2017-10-02] MEDS: PHENYTOIN 100 MG INJ IV ×3 (05:13→21:51)
[2017-10-02] MEDS: metroNIDAZOLE 500 MG TAB GTB ×3 (05:13→21:46)
[2017-10-02] MEDS: SEVELAMER CARBONATE 0.8 GM PKT GTB ×3 (08:11→18:01)
[2017-10-02] MEDS: SUCRALFATE 1 GM TAB GTB ×4 (08:12→21:46)
[2017-10-02] MEDS: LEVETIRACETAM 1500 MG (PMX) 100 ML IVPB ×2 (08:12→21:50)
[2017-10-02] MEDS: ZINC SULFATE 220 MG CAP GTB (08:12)
[2017-10-02] MEDS: COLLAGENASE 5 GM (UD JAR) TOP (09:00)
[2017-10-02 09:24] LABS: ADD MAN DIFF? NO
[2017-10-02 09:26] LABS: BASOPHILS % 0.3 % (0.0-2.0); EOSINOPHILS # 0.4 10^3/ul (0.0-0.5); EOSINOPHILS % 3.8 % (0.0-7.0); HEMATOCRIT 26.8 % (37.0-47.0); HEMOGLOBIN 8.4 g/dl (12.0-16.0); LYMPHOCYTES # 0.6 10^3/ul (0.8-2.9); LYMPHOCYTES % 5.6 % (15.0-51.0); MEAN CORPUSCULAR HEMOGLOBIN 27.3 pg (29.0-33.0); MEAN CORPUSCULAR HGB CONC 31.3 g/dl (32.0-37.0); MEAN PLATELET VOLUME 11.1 fl (7.4-10.4); MONOCYTE # 0.5 10^3/ul (0.3-0.9); MONOCYTES % 4.1 % (0.0-11.0); NEUTROPHIL # 9.8 10^3/ul (1.6-7.5); NEUTROPHILS % 85.6 % (39.0-77.0); PLATELET COUNT 287 10^3/UL (140-415); RED BLOOD COUNT 3.08 10^6/ul (4.20-5.40); RED CELL DISTRIBUTION WIDTH 18.5 % (11.5-14.5)
[2017-10-02 09:26] LABS: WHITE BLOOD COUNT 11.5 10^3/ul (4.8-10.8)
[2017-10-02 09:45] LABS: ALANINE AMINOTRANSFERASE 19 IU/L (13-69); ALBUMIN 2.5 g/dl (3.3-4.9); ALBUMIN/GLOBULIN RATIO 0.54; ALKALINE PHOSPHATASE 211 IU/L (42-121); ANION GAP 10 (8-16); ASPARTATE AMINO TRANSFERASE 31 IU/L (15-46); BLOOD UREA NITROGEN 41 mg/dl (7-20); CALCIUM 7.8 mg/dl (8.4-10.2); CARBON DIOXIDE 28 mmol/L (21-31); CHLORIDE 108 mmol/L (97-110); GLUCOSE 139 mg/dl (70-220); POTASSIUM 3.8 mmol/L (3.5-5.1); SODIUM 142 mmol/L (135-144); TOTAL PROTEIN 7.1 g/dl (6.1-8.1)
[2017-10-02 09:52] LABS: INR 4.39; PROTIME 43.4 Sec (11.9-14.9); PT RATIO 3.4
[2017-10-02] MEDS: DIGOXIN 0.125 MG TAB PO (12:42)
[2017-10-02] MEDS: ATORVASTATIN 20 MG TAB GTB (21:43)
[2017-10-03] MEDS: INSULIN ASPART [NOVOLOG] 3 ML PEN SC ×6 (01:00→22:00)
[2017-10-03] MEDS: ACCU-CHEK XX (02:00)
[2017-10-03] MEDS: COLLAGENASE 5 GM (UD JAR) TOP (05:04)
[2017-10-03] MEDS: PANTOPRAZOLE 40 MG INJ IV (05:04)
[2017-10-03] MEDS: BUMETANIDE IV (05:05)
[2017-10-03] MEDS: DEXTROSE 5% IV (05:05)
[2017-10-03] MEDS: PHENYTOIN 100 MG INJ IV ×3 (05:25→22:04)
[2017-10-03] MEDS: metroNIDAZOLE 500 MG TAB GTB ×3 (05:25→22:03)
[2017-10-03] MEDS: SEVELAMER CARBONATE 0.8 GM PKT GTB ×3 (07:45→18:07)
[2017-10-03] MEDS: SUCRALFATE 1 GM TAB GTB ×4 (07:45→21:00)
[2017-10-03 08:41] LABS: ADD MAN DIFF? NO
[2017-10-03 08:47] LABS: BASOPHILS % 0.4 % (0.0-2.0); EOSINOPHILS # 0.4 10^3/ul (0.0-0.5); EOSINOPHILS % 3.6 % (0.0-7.0); HEMATOCRIT 26.1 % (37.0-47.0); HEMOGLOBIN 8.2 g/dl (12.0-16.0); LYMPHOCYTES # 0.6 10^3/ul (0.8-2.9); LYMPHOCYTES % 5.7 % (15.0-51.0); MEAN CORPUSCULAR HEMOGLOBIN 27.2 pg (29.0-33.0); MEAN CORPUSCULAR HGB CONC 31.4 g/dl (32.0-37.0); MEAN CORPUSCULAR VOLUME 86.7 fl (82.0-101.0); MEAN PLATELET VOLUME 10.9 fl (7.4-10.4); MONOCYTE # 0.5 10^3/ul (0.3-0.9); MONOCYTES % 4.7 % (0.0-11.0); NEUTROPHIL # 9.1 10^3/ul (1.6-7.5); NEUTROPHILS % 84.9 % (39.0-77.0); PLATELET COUNT 313 10^3/UL (140-415); RED BLOOD COUNT 3.01 10^6/ul (4.20-5.40); RED CELL DISTRIBUTION WIDTH 18.5 % (11.5-14.5)
[2017-10-03 08:47] LABS: WHITE BLOOD COUNT 10.7 10^3/ul (4.8-10.8)
[2017-10-03] MEDS: ZINC SULFATE 220 MG CAP GTB (08:48)
[2017-10-03] MEDS: LEVETIRACETAM 1500 MG (PMX) 100 ML IVPB ×2 (09:00→22:03)
[2017-10-03 09:15] LABS: ANION GAP 12 (8-16); BLOOD UREA NITROGEN 43 mg/dl (7-20); CALCIUM 7.8 mg/dl (8.4-10.2); CARBON DIOXIDE 29 mmol/L (21-31); CHLORIDE 105 mmol/L (97-110); CREATININE 0.94 mg/dl (0.44-1.00); GLUCOSE 132 mg/dl (70-220); POTASSIUM 3.9 mmol/L (3.5-5.1); SODIUM 142 mmol/L (135-144)
[2017-10-03 09:17] LABS: DIGOXIN 1.3 ng/ml (1.0-2.0)
[2017-10-03 09:17] LABS: PROTIME 37.9 Sec (11.9-14.9)
[2017-10-03 09:39] LABS: MAGNESIUM 2.2 mg/dl (1.7-2.5); PHENYTOIN (DILANTIN) 16.4 ug/ml (10.0-20.0)
[2017-10-03 09:39] LABS: PHOSPHORUS 1.9 mg/dl (2.5-4.9)
[2017-10-03] MEDS: DIGOXIN 0.125 MG TAB PO (12:47)
[2017-10-03] MEDS: BUMETANIDE 1 MG TAB PO (18:07)
[2017-10-03] MEDS: ATORVASTATIN 20 MG TAB GTB (22:03)
[2017-10-04] MEDS: INSULIN ASPART [NOVOLOG] 3 ML PEN SC ×6 (01:40→22:00)
[2017-10-04] MEDS: ACCU-CHEK XX (02:00)
[2017-10-04] MEDS: PANTOPRAZOLE 40 MG INJ IV (06:28)
[2017-10-04] MEDS: PHENYTOIN 100 MG INJ IV ×3 (06:29→22:28)
[2017-10-04] MEDS: metroNIDAZOLE 500 MG TAB GTB ×3 (06:29→22:27)
[2017-10-04] MEDS: SUCRALFATE 1 GM TAB GTB ×4 (06:30→20:42)
[2017-10-04] MEDS: BUMETANIDE 1 MG TAB PO ×2 (06:30→17:36)
[2017-10-04 08:42] LABS: ADD MAN DIFF? NO
[2017-10-04 08:47] LABS: WHITE BLOOD COUNT 12.3 10^3/ul (4.8-10.8)
[2017-10-04 08:47] LABS: BASOPHIL # 0.1 10^3/ul (0.0-0.1); BASOPHILS % 0.5 % (0.0-2.0); EOSINOPHILS # 0.3 10^3/ul (0.0-0.5); EOSINOPHILS % 2.2 % (0.0-7.0); HEMOGLOBIN 7.8 g/dl (12.0-16.0); LYMPHOCYTES # 0.7 10^3/ul (0.8-2.9); LYMPHOCYTES % 5.4 % (15.0-51.0); MEAN CORPUSCULAR HEMOGLOBIN 27.3 pg (29.0-33.0); MEAN CORPUSCULAR HGB CONC 31.2 g/dl (32.0-37.0); MEAN CORPUSCULAR VOLUME 87.4 fl (82.0-101.0); MEAN PLATELET VOLUME 10.8 fl (7.4-10.4); MONOCYTE # 0.6 10^3/ul (0.3-0.9); MONOCYTES % 4.8 % (0.0-11.0); NEUTROPHIL # 10.7 10^3/ul (1.6-7.5); NEUTROPHILS % 86.5 % (39.0-77.0); PLATELET COUNT 300 10^3/UL (140-415); RED BLOOD COUNT 2.86 10^6/ul (4.20-5.40); RED CELL DISTRIBUTION WIDTH 18.5 % (11.5-14.5)
[2017-10-04 09:08] LABS: INR 2.85; PROTIME 30.7 Sec (11.9-14.9); PT RATIO 2.4
[2017-10-04 09:12] LABS: ANION GAP 10 (8-16); BLOOD UREA NITROGEN 47 mg/dl (7-20); CALCIUM 7.9 mg/dl (8.4-10.2); CARBON DIOXIDE 29 mmol/L (21-31); CHLORIDE 105 mmol/L (97-110); CREATININE 0.87 mg/dl (0.44-1.00); GLUCOSE 116 mg/dl (70-220); POTASSIUM 4.2 mmol/L (3.5-5.1); SODIUM 140 mmol/L (135-144)
[2017-10-04 09:14] LABS: PHOSPHORUS 2.6 mg/dl (2.5-4.9)
[2017-10-04 09:14] LABS: MAGNESIUM 2.1 mg/dl (1.7-2.5)
[2017-10-04] MEDS: SEVELAMER CARBONATE 0.8 GM PKT GTB ×3 (09:47→17:36)
[2017-10-04] MEDS: COLLAGENASE 5 GM (UD JAR) TOP (09:47)
[2017-10-04] MEDS: ZINC SULFATE 220 MG CAP GTB (09:48)
[2017-10-04] MEDS: LEVETIRACETAM 1500 MG (PMX) 100 ML IVPB ×2 (09:50→20:45)
[2017-10-04] MEDS: DIGOXIN 0.125 MG TAB PO (14:25)
[2017-10-04] MEDS: WARFARIN 3 MG TAB GTB (17:36)
[2017-10-04] MEDS: ATORVASTATIN 20 MG TAB GTB (20:42)
[2017-10-05] MEDS: INSULIN ASPART [NOVOLOG] 3 ML PEN SC ×6 (01:00→21:00)
[2017-10-05] MEDS: ACCU-CHEK XX (02:00)
[2017-10-05] MEDS: PANTOPRAZOLE 40 MG INJ IV (06:01)
[2017-10-05] MEDS: SUCRALFATE 1 GM TAB GTB ×4 (06:02→22:41)
[2017-10-05] MEDS: BUMETANIDE 1 MG TAB PO ×2 (06:02→18:44)
[2017-10-05] MEDS: PHENYTOIN 100 MG INJ IV ×3 (06:02→22:42)
[2017-10-05] MEDS: metroNIDAZOLE 500 MG TAB GTB ×3 (06:02→22:41)
[2017-10-05 09:11] LABS: ADD MAN DIFF? NO
[2017-10-05 09:17] LABS: BASOPHIL # 0.1 10^3/ul (0.0-0.1); BASOPHILS % 0.6 % (0.0-2.0); EOSINOPHILS # 0.3 10^3/ul (0.0-0.5); EOSINOPHILS % 2.7 % (0.0-7.0); HEMATOCRIT 24.6 % (37.0-47.0); HEMOGLOBIN 7.6 g/dl (12.0-16.0); LYMPHOCYTES # 0.6 10^3/ul (0.8-2.9); LYMPHOCYTES % 5.2 % (15.0-51.0); MEAN CORPUSCULAR HGB CONC 30.9 g/dl (32.0-37.0); MEAN CORPUSCULAR VOLUME 87.5 fl (82.0-101.0); MEAN PLATELET VOLUME 11.1 fl (7.4-10.4); MONOCYTE # 0.8 10^3/ul (0.3-0.9); MONOCYTES % 6.7 % (0.0-11.0); NEUTROPHILS % 83.9 % (39.0-77.0); PLATELET COUNT 358 10^3/UL (140-415); RED BLOOD COUNT 2.81 10^6/ul (4.20-5.40); RED CELL DISTRIBUTION WIDTH 18.7 % (11.5-14.5)
[2017-10-05 09:17] LABS: WHITE BLOOD COUNT 11.9 10^3/ul (4.8-10.8)
[2017-10-05 09:36] LABS: ANION GAP 10 (8-16); BLOOD UREA NITROGEN 48 mg/dl (7-20); CARBON DIOXIDE 30 mmol/L (21-31); CHLORIDE 107 mmol/L (97-110); CREATININE 1.02 mg/dl (0.44-1.00); GLUCOSE 123 mg/dl (70-220); POTASSIUM 4.2 mmol/L (3.5-5.1); SODIUM 143 mmol/L (135-144)
[2017-10-05 09:39] LABS: INR 2.58; PROTIME 28.4 Sec (11.9-14.9); PT RATIO 2.2
[2017-10-05 09:41] LABS: MAGNESIUM 2.2 mg/dl (1.7-2.5)
[2017-10-05] MEDS: ZINC SULFATE 220 MG CAP GTB (09:52)
[2017-10-05] MEDS: SEVELAMER CARBONATE 0.8 GM PKT GTB ×3 (09:52→18:44)
[2017-10-05] MEDS: LEVETIRACETAM 1500 MG (PMX) 100 ML IVPB ×2 (09:53→23:02)
[2017-10-05] MEDS: DIGOXIN 0.125 MG TAB PO (13:05)
[2017-10-05] MEDS: COLLAGENASE 5 GM (UD JAR) TOP (13:06)
[2017-10-05] MEDS: WARFARIN 3 MG TAB GTB (18:44)
[2017-10-05] MEDS: ATORVASTATIN 20 MG TAB GTB (22:41)
[2017-10-06] MEDS: ACCU-CHEK XX (02:00)
[2017-10-06] MEDS: INSULIN ASPART [NOVOLOG] 3 ML PEN SC ×6 (02:57→21:00)
[2017-10-06] MEDS: metroNIDAZOLE 500 MG TAB GTB ×3 (05:33→21:34)
[2017-10-06] MEDS: PANTOPRAZOLE 40 MG INJ IV (05:33)
[2017-10-06] MEDS: PHENYTOIN 100 MG INJ IV ×3 (05:33→21:37)
[2017-10-06] MEDS: BUMETANIDE 1 MG TAB PO ×2 (05:34→17:12)
[2017-10-06] MEDS: SEVELAMER CARBONATE 0.8 GM PKT GTB ×3 (08:50→17:12)
[2017-10-06] MEDS: COLLAGENASE 5 GM (UD JAR) TOP (08:50)
[2017-10-06] MEDS: SUCRALFATE 1 GM TAB GTB ×4 (08:50→21:34)
[2017-10-06] MEDS: LEVETIRACETAM 1500 MG (PMX) 100 ML IVPB ×2 (08:51→21:37)
[2017-10-06] MEDS: DIGOXIN 0.125 MG TAB PO (13:49)
[2017-10-06] MEDS: WARFARIN 3 MG TAB GTB (17:11)
[2017-10-06] MEDS: ZINC SULFATE 220 MG CAP GTB (17:11)
[2017-10-06] MEDS: ATORVASTATIN 20 MG TAB GTB (21:37)
[2017-10-07] MEDS: INSULIN ASPART [NOVOLOG] 3 ML PEN SC ×6 (01:45→21:00)
[2017-10-07] MEDS: ACCU-CHEK XX (02:00)
[2017-10-07] MEDS: PANTOPRAZOLE 40 MG INJ IV (05:27)
[2017-10-07] MEDS: COLLAGENASE 5 GM (UD JAR) TOP ×2 (05:27→09:17)
[2017-10-07] MEDS: PHENYTOIN 100 MG INJ IV ×3 (05:27→22:17)
[2017-10-07] MEDS: BUMETANIDE 1 MG TAB PO ×2 (05:27→17:02)
[2017-10-07] MEDS: metroNIDAZOLE 500 MG TAB GTB ×3 (05:27→21:57)
[2017-10-07 08:52] LABS: ADD MAN DIFF? NO
[2017-10-07 08:59] LABS: ABNORMAL IP MESSAGE 1; BASOPHIL # 0.1 10^3/ul (0.0-0.1); BASOPHILS % 0.6 % (0.0-2.0); EOSINOPHILS # 0.3 10^3/ul (0.0-0.5); EOSINOPHILS % 3.6 % (0.0-7.0); HEMOGLOBIN 7.2 g/dl (12.0-16.0); LYMPHOCYTES # 0.5 10^3/ul (0.8-2.9); LYMPHOCYTES % 6.3 % (15.0-51.0); MEAN CORPUSCULAR HEMOGLOBIN 27.3 pg (29.0-33.0); MEAN CORPUSCULAR HGB CONC 31.3 g/dl (32.0-37.0); MEAN CORPUSCULAR VOLUME 87.1 fl (82.0-101.0); MEAN PLATELET VOLUME 10.4 fl (7.4-10.4); MONOCYTE # 0.6 10^3/ul (0.3-0.9); MONOCYTES % 7.3 % (0.0-11.0); NEUTROPHIL # 6.5 10^3/ul (1.6-7.5); NEUTROPHILS % 81.7 % (39.0-77.0); PLATELET COUNT 338 10^3/UL (140-415); RED BLOOD COUNT 2.64 10^6/ul (4.20-5.40); RED CELL DISTRIBUTION WIDTH 18.6 % (11.5-14.5)
[2017-10-07 09:03] LABS: POSITIVE DIFF @See below
[2017-10-07] MEDS: ZINC SULFATE 220 MG CAP GTB (09:17)
[2017-10-07] MEDS: SUCRALFATE 1 GM TAB GTB ×4 (09:17→21:57)
[2017-10-07] MEDS: SEVELAMER CARBONATE 0.8 GM PKT GTB ×3 (09:19→17:02)
[2017-10-07] MEDS: LEVETIRACETAM 1500 MG (PMX) 100 ML IVPB ×2 (09:34→22:17)
[2017-10-07 09:50] LABS: ANION GAP 7 (8-16); BLOOD UREA NITROGEN 54 mg/dl (7-20); CALCIUM 7.9 mg/dl (8.4-10.2); CARBON DIOXIDE 32 mmol/L (21-31); CHLORIDE 106 mmol/L (97-110); CREATININE 1.05 mg/dl (0.44-1.00); GLUCOSE 123 mg/dl (70-220); POTASSIUM 4.1 mmol/L (3.5-5.1); SODIUM 141 mmol/L (135-144)
[2017-10-07] MEDS: DIGOXIN 0.125 MG TAB PO (13:00)
[2017-10-07] MEDS: WARFARIN 3 MG TAB GTB (17:06)
[2017-10-07] MEDS: ATORVASTATIN 20 MG TAB GTB (21:57)
[2017-10-08] MEDS: INSULIN ASPART [NOVOLOG] 3 ML PEN SC ×6 (01:00→20:57)
[2017-10-08] MEDS: ACCU-CHEK XX (01:12)
[2017-10-08] MEDS: PANTOPRAZOLE 40 MG INJ IV (05:46)
[2017-10-08] MEDS: PHENYTOIN 100 MG INJ IV ×3 (05:46→21:02)
[2017-10-08] MEDS: metroNIDAZOLE 500 MG TAB GTB ×3 (05:46→21:02)
[2017-10-08] MEDS: BUMETANIDE 1 MG TAB PO ×2 (05:46→17:23)
[2017-10-08] MEDS: ZINC SULFATE 220 MG CAP GTB (09:16)
[2017-10-08] MEDS: COLLAGENASE 5 GM (UD JAR) TOP (09:17)
[2017-10-08] MEDS: SEVELAMER CARBONATE 0.8 GM PKT GTB ×3 (09:17→17:24)
[2017-10-08] MEDS: SUCRALFATE 1 GM TAB GTB ×4 (09:17→20:57)
[2017-10-08 09:33] LABS: ADD MAN DIFF? NO
[2017-10-08 09:37] LABS: ABNORMAL IP MESSAGE 1; BASOPHIL # 0.1 10^3/ul (0.0-0.1); BASOPHILS % 0.8 % (0.0-2.0); EOSINOPHILS # 0.3 10^3/ul (0.0-0.5); EOSINOPHILS % 3.6 % (0.0-7.0); HEMATOCRIT 24.8 % (37.0-47.0); HEMOGLOBIN 7.9 g/dl (12.0-16.0); LYMPHOCYTES # 0.5 10^3/ul (0.8-2.9); LYMPHOCYTES % 6.5 % (15.0-51.0); MEAN CORPUSCULAR HEMOGLOBIN 27.4 pg (29.0-33.0); MEAN CORPUSCULAR HGB CONC 31.9 g/dl (32.0-37.0); MEAN CORPUSCULAR VOLUME 86.1 fl (82.0-101.0); MEAN PLATELET VOLUME 10.8 fl (7.4-10.4); MONOCYTE # 0.6 10^3/ul (0.3-0.9); NEUTROPHIL # 6.4 10^3/ul (1.6-7.5); NEUTROPHILS % 81.7 % (39.0-77.0); PLATELET COUNT 393 10^3/UL (140-415); RED BLOOD COUNT 2.88 10^6/ul (4.20-5.40); RED CELL DISTRIBUTION WIDTH 18.4 % (11.5-14.5)
[2017-10-08 09:37] LABS: WHITE BLOOD COUNT 7.8 10^3/ul (4.8-10.8)
[2017-10-08] MEDS: LEVETIRACETAM 1500 MG (PMX) 100 ML IVPB ×2 (09:37→20:56)
[2017-10-08 10:00] LABS: ANION GAP 13 (8-16); BLOOD UREA NITROGEN 54 mg/dl (7-20); CALCIUM 7.8 mg/dl (8.4-10.2); CARBON DIOXIDE 27 mmol/L (21-31); CHLORIDE 103 mmol/L (97-110); CREATININE 0.87 mg/dl (0.44-1.00); GLUCOSE 113 mg/dl (70-220); SODIUM 139 mmol/L (135-144)
[2017-10-08 10:09] LABS: PROTIME 81.1 Sec (11.9-14.9); PT RATIO 6.3
[2017-10-08 10:29] LABS: INR 9.58
[2017-10-08] MEDS: DIGOXIN 0.125 MG TAB PO (12:45)
[2017-10-08 16:20] LABS: PROTIME 87.4 Sec (11.9-14.9); PT RATIO 6.8
[2017-10-08 16:24] LABS: INR 10.52
[2017-10-08] MEDS ORDERED: PHYTONADIONE (1 MG/ML PO SYG) GTB (16:30)
[2017-10-08] MEDS: BALSAM PERU/CASTOR OIL 60 GM TUBE TOP (17:05)
[2017-10-08] MEDS: PHYTONADIONE 10 MG/ML INJ SC (17:24)
[2017-10-08] MEDS: ATORVASTATIN 20 MG TAB GTB (20:56)
[2017-10-09] MEDS: INSULIN ASPART [NOVOLOG] 3 ML PEN SC ×5 (01:00→18:00)
[2017-10-09] MEDS: ACCU-CHEK XX (01:36)
[2017-10-09] MEDS: metroNIDAZOLE 500 MG TAB GTB ×3 (06:00→21:32)
[2017-10-09] MEDS: PHENYTOIN 100 MG INJ IV ×3 (06:05→21:33)
[2017-10-09] MEDS: PANTOPRAZOLE 40 MG INJ IV (06:05)
[2017-10-09] MEDS: BUMETANIDE 1 MG TAB PO ×2 (06:06→17:53)
[2017-10-09] MEDS: ZINC SULFATE 220 MG CAP GTB (09:04)
[2017-10-09] MEDS: SEVELAMER CARBONATE 0.8 GM PKT GTB ×3 (09:05→17:53)
[2017-10-09] MEDS: SUCRALFATE 1 GM TAB GTB ×4 (09:05→21:28)
[2017-10-09] MEDS: BALSAM PERU/CASTOR OIL 60 GM TUBE TOP (09:06)
[2017-10-09] MEDS: COLLAGENASE 5 GM (UD JAR) TOP (09:06)
[2017-10-09 09:24] LABS: ADD MAN DIFF? NO
[2017-10-09] MEDS: LEVETIRACETAM 1500 MG (PMX) 100 ML IVPB ×2 (09:24→21:27)
[2017-10-09 09:30] LABS: WHITE BLOOD COUNT 7.6 10^3/ul (4.8-10.8)
[2017-10-09 09:30] LABS: ABNORMAL IP MESSAGE 1; BASOPHIL # 0.1 10^3/ul (0.0-0.1); BASOPHILS % 0.8 % (0.0-2.0); EOSINOPHILS # 0.3 10^3/ul (0.0-0.5); EOSINOPHILS % 3.6 % (0.0-7.0); HEMATOCRIT 22.8 % (37.0-47.0); HEMOGLOBIN 7.2 g/dl (12.0-16.0); LYMPHOCYTES # 0.6 10^3/ul (0.8-2.9); LYMPHOCYTES % 7.7 % (15.0-51.0); MEAN CORPUSCULAR HEMOGLOBIN 27.1 pg (29.0-33.0); MEAN CORPUSCULAR HGB CONC 31.6 g/dl (32.0-37.0); MEAN CORPUSCULAR VOLUME 85.7 fl (82.0-101.0); MEAN PLATELET VOLUME 10.7 fl (7.4-10.4); MONOCYTE # 0.7 10^3/ul (0.3-0.9); MONOCYTES % 8.6 % (0.0-11.0); NEUTROPHIL # 5.9 10^3/ul (1.6-7.5); NEUTROPHILS % 78.5 % (39.0-77.0); PLATELET COUNT 376 10^3/UL (140-415); RED BLOOD COUNT 2.66 10^6/ul (4.20-5.40); RED CELL DISTRIBUTION WIDTH 18.4 % (11.5-14.5)
[2017-10-09 09:34] LABS: POSITIVE DIFF @See below
[2017-10-09 09:41] LABS: ANION GAP 13 (8-16); BLOOD UREA NITROGEN 50 mg/dl (7-20); CALCIUM 7.6 mg/dl (8.4-10.2); CARBON DIOXIDE 27 mmol/L (21-31); CHLORIDE 103 mmol/L (97-110); CREATININE 0.96 mg/dl (0.44-1.00); GLUCOSE 109 mg/dl (70-220); POTASSIUM 3.8 mmol/L (3.5-5.1); SODIUM 139 mmol/L (135-144)
[2017-10-09 09:45] LABS: PROTIME 69.5 Sec (11.9-14.9); PT RATIO 5.4
[2017-10-09] MEDS ORDERED: PHYTONADIONE (1 MG/ML PO SYG) PO (10:30)
[2017-10-09] MEDS: PHYTONADIONE (1 MG/ML PO SYG) PO ×2 (12:13→21:32)
[2017-10-09] MEDS: DIGOXIN 0.125 MG TAB PO (12:15)
[2017-10-09] MEDS: ATORVASTATIN 20 MG TAB GTB (21:27)
[2017-10-10] MEDS: ACCU-CHEK XX
[2017-10-10] MEDS: INSULIN ASPART [NOVOLOG] 3 ML PEN SC ×5 (06:00→23:43)
[2017-10-10] MEDS: BUMETANIDE 1 MG TAB PO ×2 (06:22→16:56)
[2017-10-10] MEDS: PHENYTOIN 100 MG INJ IV ×3 (06:22→21:17)
[2017-10-10] MEDS: metroNIDAZOLE 500 MG TAB GTB ×3 (06:22→21:17)
[2017-10-10] MEDS: PANTOPRAZOLE 40 MG INJ IV (06:22)
[2017-10-10] MEDS: SUCRALFATE 1 GM TAB GTB ×4 (06:26→21:16)
[2017-10-10] MEDS: SEVELAMER CARBONATE 0.8 GM PKT GTB ×3 (06:26→16:57)
[2017-10-10 06:48] LABS: ADD MAN DIFF? NO
[2017-10-10 06:54] LABS: WHITE BLOOD COUNT 14.5 10^3/ul (4.8-10.8)
[2017-10-10 06:54] LABS: BASOPHIL # 0.1 10^3/ul (0.0-0.1); BASOPHILS % 0.6 % (0.0-2.0); EOSINOPHILS # 0.2 10^3/ul (0.0-0.5); EOSINOPHILS % 1.5 % (0.0-7.0); HEMATOCRIT 23.1 % (37.0-47.0); HEMOGLOBIN 7.2 g/dl (12.0-16.0); LYMPHOCYTES # 0.7 10^3/ul (0.8-2.9); LYMPHOCYTES % 5.1 % (15.0-51.0); MEAN CORPUSCULAR HEMOGLOBIN 26.9 pg (29.0-33.0); MEAN CORPUSCULAR HGB CONC 31.2 g/dl (32.0-37.0); MEAN CORPUSCULAR VOLUME 86.2 fl (82.0-101.0); MEAN PLATELET VOLUME 10.7 fl (7.4-10.4); MONOCYTE # 0.7 10^3/ul (0.3-0.9); MONOCYTES % 4.6 % (0.0-11.0); NEUTROPHIL # 12.7 10^3/ul (1.6-7.5); NEUTROPHILS % 87.6 % (39.0-77.0); PLATELET COUNT 396 10^3/UL (140-415); RED BLOOD COUNT 2.68 10^6/ul (4.20-5.40); RED CELL DISTRIBUTION WIDTH 18.4 % (11.5-14.5)
[2017-10-10 07:04] LABS: INR 3.62; PROTIME 37.2 Sec (11.9-14.9); PT RATIO 2.9
[2017-10-10 07:11] LABS: ANION GAP 7 (8-16); BLOOD UREA NITROGEN 48 mg/dl (7-20); CALCIUM 7.7 mg/dl (8.4-10.2); CARBON DIOXIDE 32 mmol/L (21-31); CHLORIDE 104 mmol/L (97-110); CREATININE 0.89 mg/dl (0.44-1.00); GLUCOSE 111 mg/dl (70-220); POTASSIUM 4.1 mmol/L (3.5-5.1); SODIUM 139 mmol/L (135-144)
[2017-10-10] MEDS: LEVETIRACETAM 1500 MG (PMX) 100 ML IVPB ×2 (09:54→21:16)
[2017-10-10] MEDS: ZINC SULFATE 220 MG CAP GTB (09:54)
[2017-10-10] MEDS: COLLAGENASE 5 GM (UD JAR) TOP (09:55)
[2017-10-10] MEDS: PHYTONADIONE (1 MG/ML PO SYG) PO (09:55)
[2017-10-10] MEDS: BALSAM PERU/CASTOR OIL 60 GM TUBE TOP (09:56)
[2017-10-10] MEDS: DIGOXIN 0.125 MG TAB PO (13:00)
[2017-10-10] MEDS ORDERED: PETROLATUM 5 GM OINT TOP (15:00)
[2017-10-10] MEDS: PETROLATUM 28.35 GM JELLY TOP ×2 (16:48→23:37)
[2017-10-10] MEDS: IVERMECTIN 3 MG TAB PO (16:48)
[2017-10-10] MEDS: ATORVASTATIN 20 MG TAB GTB (21:16)
[2017-10-11] MEDS: ACCU-CHEK XX (02:00)
[2017-10-11] MEDS: PHENYTOIN 100 MG INJ IV ×3 (05:27→21:19)
[2017-10-11] MEDS: metroNIDAZOLE 500 MG TAB GTB ×3 (05:27→21:18)
[2017-10-11] MEDS: BUMETANIDE 1 MG TAB PO ×2 (05:27→17:15)
[2017-10-11] MEDS: PANTOPRAZOLE 40 MG INJ IV (05:27)
[2017-10-11] MEDS: SEVELAMER CARBONATE 0.8 GM PKT GTB ×3 (05:32→17:16)
[2017-10-11] MEDS: INSULIN ASPART [NOVOLOG] 3 ML PEN SC ×3 (05:38→17:14)
[2017-10-11] MEDS: SUCRALFATE 1 GM TAB GTB ×4 (05:39→21:18)
[2017-10-11 05:49] LABS: ADD MAN DIFF? NO
[2017-10-11 05:52] LABS: WHITE BLOOD COUNT 8.8 10^3/ul (4.8-10.8)
[2017-10-11 05:52] LABS: ABNORMAL IP MESSAGE 1; BASOPHILS % 0.5 % (0.0-2.0); EOSINOPHILS # 0.3 10^3/ul (0.0-0.5); EOSINOPHILS % 3.1 % (0.0-7.0); HEMATOCRIT 21.6 % (37.0-47.0); LYMPHOCYTES # 0.5 10^3/ul (0.8-2.9); MEAN CORPUSCULAR HEMOGLOBIN 27.1 pg (29.0-33.0); MEAN CORPUSCULAR HGB CONC 31.5 g/dl (32.0-37.0); MEAN CORPUSCULAR VOLUME 86.1 fl (82.0-101.0); MEAN PLATELET VOLUME 10.9 fl (7.4-10.4); MONOCYTE # 0.7 10^3/ul (0.3-0.9); MONOCYTES % 7.4 % (0.0-11.0); NEUTROPHIL # 7.3 10^3/ul (1.6-7.5); NEUTROPHILS % 82.7 % (39.0-77.0); PLATELET COUNT 338 10^3/UL (140-415); RED BLOOD COUNT 2.51 10^6/ul (4.20-5.40); RED CELL DISTRIBUTION WIDTH 18.2 % (11.5-14.5)
[2017-10-11 06:11] LABS: INR 2.81; PROTIME 30.4 Sec (11.9-14.9); PT RATIO 2.4
[2017-10-11 06:45] LABS: POSITIVE DIFF @See below
[2017-10-11 06:48] LABS: ANION GAP 8 (8-16); BLOOD UREA NITROGEN 49 mg/dl (7-20); CALCIUM 7.4 mg/dl (8.4-10.2); CARBON DIOXIDE 30 mmol/L (21-31); CHLORIDE 103 mmol/L (97-110); CREATININE 0.71 mg/dl (0.44-1.00); GLUCOSE 111 mg/dl (70-220); POTASSIUM 3.8 mmol/L (3.5-5.1); SODIUM 137 mmol/L (135-144)
[2017-10-11 06:51] LABS: HEMOGLOBIN 6.8 g/dl (12.0-16.0); PATH REVIEW? YES
[2017-10-11 08:58] LABS: ANISOCYTOSIS 1+ (0-0); BAND NEUTROPHILS #M 0.6 10^3/ul (0.0-0.6); BAND NEUTROPHILS % (M) 7 % (0-4); EOSINOPHILS % (M) 1 % (0-7); GIANT THROMBO% (M) 4 % (0-0); HYPOCHROMASIA 1+ (0-0); LYMPHOCYTES #M 0.1 10^3/ul (0.8-2.9); LYMPHOCYTES % (M) 2 % (15-51); MONOCYTE #M 0.2 10^3/ul (0.3-0.9); MONOCYTES % (M) 3 % (0-11); PLATELET ESTIMATE NORMAL; POLYCHROMASIA 2+ (0-0); REACTIVE LYMPHOCYTES% (M) 1 % (0-0); SEG NEUT #M 7.6 10^3/ul (1.6-7.5); SEGMENTED NEUTROPHILS (M) % 86 % (39-77); SMUDGE%M 3 % (0-0)
[2017-10-11] MEDS: ZINC SULFATE 220 MG CAP GTB (09:10)
[2017-10-11] MEDS: LEVETIRACETAM 1500 MG (PMX) 100 ML IVPB ×2 (09:13→21:19)
[2017-10-11] MEDS: PETROLATUM 28.35 GM JELLY TOP ×2 (09:13→21:20)
[2017-10-11] MEDS: BALSAM PERU/CASTOR OIL 60 GM TUBE TOP (09:13)
[2017-10-11] MEDS: COLLAGENASE 5 GM (UD JAR) TOP (09:14)
[2017-10-11 10:24] LABS: IMMEDIATE SPIN CROSSMATCH 1 2
[2017-10-11] MEDS: DIGOXIN 0.125 MG TAB PO (12:03)
[2017-10-11] MEDS ORDERED: WARFARIN 3 MG TAB GTB (17:00)
[2017-10-11] MEDS: ATORVASTATIN 20 MG TAB GTB (21:18)
[2017-10-12] MEDS: ACCU-CHEK XX (01:27)
[2017-10-12] MEDS: metroNIDAZOLE 500 MG TAB GTB ×3 (05:38→21:33)
[2017-10-12] MEDS: INSULIN ASPART [NOVOLOG] 3 ML PEN SC ×5 (05:38→23:44)
[2017-10-12] MEDS: BUMETANIDE 1 MG TAB PO ×2 (05:38→17:32)
[2017-10-12] MEDS: PHENYTOIN 100 MG INJ IV ×3 (05:38→21:32)
[2017-10-12] MEDS: PANTOPRAZOLE 40 MG INJ IV (05:38)
[2017-10-12 06:59] LABS: ADD MAN DIFF? NO
[2017-10-12 07:01] LABS: WHITE BLOOD COUNT 7.8 10^3/ul (4.8-10.8)
[2017-10-12 07:01] LABS: ABNORMAL IP MESSAGE 1; BASOPHIL # 0.1 10^3/ul (0.0-0.1); EOSINOPHILS # 0.3 10^3/ul (0.0-0.5); EOSINOPHILS % 3.2 % (0.0-7.0); HEMATOCRIT 29.1 % (37.0-47.0); HEMOGLOBIN 9.4 g/dl (12.0-16.0); LYMPHOCYTES # 0.5 10^3/ul (0.8-2.9); LYMPHOCYTES % 6.2 % (15.0-51.0); MEAN CORPUSCULAR HGB CONC 32.3 g/dl (32.0-37.0); MEAN CORPUSCULAR VOLUME 83.6 fl (82.0-101.0); MEAN PLATELET VOLUME 10.1 fl (7.4-10.4); MONOCYTE # 0.6 10^3/ul (0.3-0.9); MONOCYTES % 7.6 % (0.0-11.0); NEUTROPHIL # 6.3 10^3/ul (1.6-7.5); NEUTROPHILS % 81.5 % (39.0-77.0); PLATELET COUNT 306 10^3/UL (140-415); RED BLOOD COUNT 3.48 10^6/ul (4.20-5.40)
[2017-10-12 07:09] LABS: POSITIVE DIFF @See below
[2017-10-12 07:25] LABS: ANION GAP 10 (8-16); BLOOD UREA NITROGEN 46 mg/dl (7-20); CALCIUM 7.6 mg/dl (8.4-10.2); CARBON DIOXIDE 28 mmol/L (21-31); CHLORIDE 104 mmol/L (97-110); CREATININE 0.71 mg/dl (0.44-1.00); GLUCOSE 115 mg/dl (70-220); POTASSIUM 3.8 mmol/L (3.5-5.1); SODIUM 138 mmol/L (135-144)
[2017-10-12 10:06] LABS: INR 2.09; PT RATIO 1.9
[2017-10-12] MEDS: SUCRALFATE 1 GM TAB GTB ×4 (10:13→21:33)
[2017-10-12] MEDS: COLLAGENASE 5 GM (UD JAR) TOP (10:13)
[2017-10-12] MEDS: ZINC SULFATE 220 MG CAP GTB (10:14)
[2017-10-12] MEDS: SEVELAMER CARBONATE 0.8 GM PKT GTB ×3 (10:15→17:33)
[2017-10-12] MEDS: LEVETIRACETAM 1500 MG (PMX) 100 ML IVPB ×2 (10:16→21:37)
[2017-10-12] MEDS: PETROLATUM 28.35 GM JELLY TOP (10:17)
[2017-10-12] MEDS: BALSAM PERU/CASTOR OIL 60 GM TUBE TOP (10:18)
[2017-10-12] MEDS: DIGOXIN 0.125 MG TAB PO (12:21)
[2017-10-12 15:29] LABS: OCCULT BLOOD STOOL POSITIVE (NEGATIVE)
[2017-10-12] MEDS: WARFARIN 1 MG TAB PO (17:32)
[2017-10-12] MEDS: ATORVASTATIN 20 MG TAB GTB (21:33)
[2017-10-13] MEDS: ACETAMINOPHEN 325 MG TAB PO ×2 (00:09→09:07)
[2017-10-13] MEDS: ACCU-CHEK XX (01:45)
[2017-10-13] MEDS: INSULIN ASPART [NOVOLOG] 3 ML PEN SC ×4 (06:00→23:48)
[2017-10-13] MEDS: PANTOPRAZOLE 40 MG INJ IV (06:06)
[2017-10-13] MEDS: PHENYTOIN 100 MG INJ IV ×3 (06:07→21:40)
[2017-10-13] MEDS: BUMETANIDE 1 MG TAB PO ×2 (06:10→17:31)
[2017-10-13] MEDS: metroNIDAZOLE 500 MG TAB GTB (06:10)
[2017-10-13 08:24] LABS: ADD MAN DIFF? NO
[2017-10-13 08:30] LABS: WHITE BLOOD COUNT 7.6 10^3/ul (4.8-10.8)
[2017-10-13 08:30] LABS: ABNORMAL IP MESSAGE 1; BASOPHIL # 0.1 10^3/ul (0.0-0.1); BASOPHILS % 0.8 % (0.0-2.0); EOSINOPHILS # 0.3 10^3/ul (0.0-0.5); EOSINOPHILS % 4.1 % (0.0-7.0); HEMATOCRIT 27.9 % (37.0-47.0); HEMOGLOBIN 8.9 g/dl (12.0-16.0); LYMPHOCYTES # 0.6 10^3/ul (0.8-2.9); LYMPHOCYTES % 7.5 % (15.0-51.0); MEAN CORPUSCULAR HEMOGLOBIN 26.9 pg (29.0-33.0); MEAN CORPUSCULAR HGB CONC 31.9 g/dl (32.0-37.0); MEAN CORPUSCULAR VOLUME 84.3 fl (82.0-101.0); MEAN PLATELET VOLUME 10.7 fl (7.4-10.4); MONOCYTE # 0.6 10^3/ul (0.3-0.9); MONOCYTES % 7.3 % (0.0-11.0); NEUTROPHILS % 79.9 % (39.0-77.0); PLATELET COUNT 311 10^3/UL (140-415); RED BLOOD COUNT 3.31 10^6/ul (4.20-5.40); RED CELL DISTRIBUTION WIDTH 17.9 % (11.5-14.5)
[2017-10-13 08:46] LABS: ANION GAP 11 (8-16); BLOOD UREA NITROGEN 44 mg/dl (7-20); CALCIUM 7.6 mg/dl (8.4-10.2); CARBON DIOXIDE 27 mmol/L (21-31); CHLORIDE 104 mmol/L (97-110); CREATININE 0.77 mg/dl (0.44-1.00); GLUCOSE 101 mg/dl (70-220); POTASSIUM 3.8 mmol/L (3.5-5.1); SODIUM 138 mmol/L (135-144)
[2017-10-13] MEDS: SEVELAMER CARBONATE 0.8 GM PKT GTB ×3 (09:07→17:31)
[2017-10-13] MEDS: LEVETIRACETAM 1500 MG (PMX) 100 ML IVPB ×2 (09:07→21:40)
[2017-10-13] MEDS: SUCRALFATE 1 GM TAB GTB ×4 (09:08→21:41)
[2017-10-13] MEDS: ZINC SULFATE 220 MG CAP GTB (09:08)
[2017-10-13] MEDS: COLLAGENASE 5 GM (UD JAR) TOP (09:09)
[2017-10-13] MEDS: BALSAM PERU/CASTOR OIL 60 GM TUBE TOP (09:10)
[2017-10-13 09:58] LABS: INR 1.83; PROTIME 21.6 Sec (11.9-14.9); PT RATIO 1.7
[2017-10-13] MEDS: DIGOXIN 0.125 MG TAB PO (12:39)
[2017-10-13] MEDS: WARFARIN 1 MG TAB PO (17:31)
[2017-10-13] MEDS: ATORVASTATIN 20 MG TAB GTB (21:40)
[2017-10-14] MEDS: ACCU-CHEK XX (01:25)
[2017-10-14] MEDS: BUMETANIDE 1 MG TAB PO ×2 (05:25→18:09)
[2017-10-14] MEDS: PANTOPRAZOLE 40 MG INJ IV (05:25)
[2017-10-14] MEDS: PHENYTOIN 100 MG INJ IV ×3 (05:25→22:39)
[2017-10-14] MEDS: INSULIN ASPART [NOVOLOG] 3 ML PEN SC ×4 (05:59→22:39)
[2017-10-14 09:26] LABS: ADD MAN DIFF? NO
[2017-10-14 09:31] LABS: ABNORMAL IP MESSAGE 1; BASOPHIL # 0.1 10^3/ul (0.0-0.1); BASOPHILS % 0.8 % (0.0-2.0); EOSINOPHILS # 0.3 10^3/ul (0.0-0.5); EOSINOPHILS % 3.3 % (0.0-7.0); HEMOGLOBIN 8.8 g/dl (12.0-16.0); LYMPHOCYTES # 0.5 10^3/ul (0.8-2.9); LYMPHOCYTES % 5.7 % (15.0-51.0); MEAN CORPUSCULAR HGB CONC 31.4 g/dl (32.0-37.0); MEAN CORPUSCULAR VOLUME 85.9 fl (82.0-101.0); MONOCYTE # 0.7 10^3/ul (0.3-0.9); MONOCYTES % 7.9 % (0.0-11.0); NEUTROPHIL # 7.2 10^3/ul (1.6-7.5); NEUTROPHILS % 81.7 % (39.0-77.0); PLATELET COUNT 336 10^3/UL (140-415); RED BLOOD COUNT 3.26 10^6/ul (4.20-5.40); RED CELL DISTRIBUTION WIDTH 17.9 % (11.5-14.5)
[2017-10-14 09:31] LABS: WHITE BLOOD COUNT 8.8 10^3/ul (4.8-10.8)
[2017-10-14 10:09] LABS: ANION GAP 10 (8-16); BLOOD UREA NITROGEN 43 mg/dl (7-20); CALCIUM 7.6 mg/dl (8.4-10.2); CARBON DIOXIDE 29 mmol/L (21-31); CHLORIDE 103 mmol/L (97-110); CREATININE 0.76 mg/dl (0.44-1.00); GLUCOSE 131 mg/dl (70-220); POTASSIUM 3.9 mmol/L (3.5-5.1); SODIUM 138 mmol/L (135-144)
[2017-10-14] MEDS: SEVELAMER CARBONATE 0.8 GM PKT GTB ×3 (10:17→18:09)
[2017-10-14] MEDS: ZINC SULFATE 220 MG CAP GTB (10:17)
[2017-10-14] MEDS: SUCRALFATE 1 GM TAB GTB ×4 (10:17→22:38)
[2017-10-14] MEDS: BALSAM PERU/CASTOR OIL 60 GM TUBE TOP (10:18)
[2017-10-14] MEDS: COLLAGENASE 5 GM (UD JAR) TOP (10:18)
[2017-10-14] MEDS: LEVETIRACETAM 1500 MG (PMX) 100 ML IVPB ×2 (10:18→21:00)
[2017-10-14 10:30] LABS: INR 1.65; PROTIME 19.9 Sec (11.9-14.9); PT RATIO 1.6
[2017-10-14] MEDS: DIGOXIN 0.125 MG TAB PO (12:53)
[2017-10-14] MEDS ORDERED: AMIKACIN IV PER PHARMACY XX (14:30)
[2017-10-14] MEDS: WARFARIN 1 MG TAB PO (18:09)
[2017-10-14] MEDS: AMIKACIN 625 MG in SOD CHLORIDE 0.9% 100 ML IVPB (18:20)
[2017-10-14] MEDS: ATORVASTATIN 20 MG TAB GTB (22:38)
[2017-10-15] MEDS: ACCU-CHEK XX (02:00)
[2017-10-15 04:17] LABS: ADD MAN DIFF? NO
[2017-10-15 04:18] LABS: ABNORMAL IP MESSAGE 1; BASOPHIL # 0.1 10^3/ul (0.0-0.1); BASOPHILS % 0.9 % (0.0-2.0); EOSINOPHILS # 0.4 10^3/ul (0.0-0.5); EOSINOPHILS % 4.4 % (0.0-7.0); HEMATOCRIT 27.2 % (37.0-47.0); HEMOGLOBIN 8.7 g/dl (12.0-16.0); LYMPHOCYTES # 0.6 10^3/ul (0.8-2.9); MEAN CORPUSCULAR HEMOGLOBIN 27.4 pg (29.0-33.0); MEAN CORPUSCULAR VOLUME 85.5 fl (82.0-101.0); MEAN PLATELET VOLUME 9.9 fl (7.4-10.4); MONOCYTE # 0.6 10^3/ul (0.3-0.9); NEUTROPHIL # 6.6 10^3/ul (1.6-7.5); NEUTROPHILS % 80.4 % (39.0-77.0); PLATELET COUNT 320 10^3/UL (140-415); RED BLOOD COUNT 3.18 10^6/ul (4.20-5.40); RED CELL DISTRIBUTION WIDTH 17.7 % (11.5-14.5)
[2017-10-15 04:18] LABS: WHITE BLOOD COUNT 8.2 10^3/ul (4.8-10.8)
[2017-10-15 04:21] LABS: LYMPHOCYTES % 6.9 % (15.0-51.0); POSITIVE DIFF @See below
[2017-10-15 04:38] LABS: INR 1.72; PROTIME 20.5 Sec (11.9-14.9); PT RATIO 1.6
[2017-10-15 04:50] LABS: ANION GAP 11 (8-16); BLOOD UREA NITROGEN 43 mg/dl (7-20); CALCIUM 7.5 mg/dl (8.4-10.2); CARBON DIOXIDE 28 mmol/L (21-31); CHLORIDE 104 mmol/L (97-110); CREATININE 0.69 mg/dl (0.44-1.00); GLUCOSE 96 mg/dl (70-220); SODIUM 139 mmol/L (135-144)
[2017-10-15] MEDS: INSULIN ASPART [NOVOLOG] 3 ML PEN SC ×3 (06:00→17:39)
[2017-10-15] MEDS: PHENYTOIN 100 MG INJ IV ×2 (06:49→16:10)
[2017-10-15] MEDS: PANTOPRAZOLE 40 MG INJ IV (06:49)
[2017-10-15] MEDS: BUMETANIDE 1 MG TAB PO ×2 (06:49→17:37)
[2017-10-15] MEDS: SUCRALFATE 1 GM TAB GTB ×3 (06:50→17:39)
[2017-10-15] MEDS: SEVELAMER CARBONATE 0.8 GM PKT GTB ×3 (08:57→17:36)
[2017-10-15] MEDS: ZINC SULFATE 220 MG CAP GTB (08:57)
[2017-10-15] MEDS: LEVETIRACETAM 1500 MG (PMX) 100 ML IVPB (08:57)
[2017-10-15] MEDS: COLLAGENASE 5 GM (UD JAR) TOP (08:58)
[2017-10-15] MEDS: BALSAM PERU/CASTOR OIL 60 GM TUBE TOP (08:58)
[2017-10-15] MEDS: DIGOXIN 0.125 MG TAB PO (12:44)
[2017-10-15] MEDS: WARFARIN 1 MG TAB PO (17:37)
== END 2017-10-15 19:37 | DRG 870 ==
LOC: TEL 09-29 15:18 → E/R 06:05 → ICU 10:17
PROC: 5A1955Z Respiratory Ventilation, Greater than 96 Consecutive Hours (ICD-10-PCS; principal; 2017-09-26)
PROC: 4A00X4Z Measurement of Central Nervous Electrical Activity, External Approach (ICD-10-PCS; 2017-09-27)
PROC: 30233N1 Transfusion of Nonautologous Red Blood Cells into Peripheral Vein, Percutaneous Approach (ICD-10-PCS; 2017-10-11)
DX: A41.9 Sepsis, unspecified organism (principal); R65.21 Severe sepsis with septic shock; J18.9 Pneumonia, unspecified organism; L89.153 Pressure ulcer of sacral region, stage 3; E43 Unspecified severe protein-calorie malnutrition; G92 Toxic encephalopathy; J96.20 Acute and chronic respiratory failure, unspecified whether with hypoxia or hypercapnia; I50.43 Acute on chronic combined systolic (congestive) and diastolic (congestive) heart failure; Z68.1 Body mass index [BMI] 19.9 or less, adult; Z99.11 Dependence on respirator [ventilator] status; I13.0 Hypertensive heart and chronic kidney disease with heart failure and stage 1 through stage 4 chronic kidney disease, or unspecified chronic kidney disease; E87.2 Acidosis; K62.5 Hemorrhage of anus and rectum; G93.1 Anoxic brain damage, not elsewhere classified; A04.72 Enterocolitis due to Clostridium difficile, not specified as recurrent; N17.9 Acute kidney failure, unspecified; N39.0 Urinary tract infection, site not specified; J95.02 Infection of tracheostomy stoma; I42.9 Cardiomyopathy, unspecified; Z93.1 Gastrostomy status; I25.10 Atherosclerotic heart disease of native coronary artery without angina pectoris; I25.2 Old myocardial infarction; E11.22 Type 2 diabetes mellitus with diabetic chronic kidney disease; N18.9 Chronic kidney disease, unspecified; B96.1 Klebsiella pneumoniae [K. pneumoniae] as the cause of diseases classified elsewhere; E78.5 Hyperlipidemia, unspecified; I48.2 Chronic atrial fibrillation; R13.10 Dysphagia, unspecified; G40.909 Epilepsy, unspecified, not intractable, without status epilepticus; D64.9 Anemia, unspecified; D69.6 Thrombocytopenia, unspecified; R79.1 Abnormal coagulation profile; B87.89 Myiasis of other sites; I07.1 Rheumatic tricuspid insufficiency; Z86.74 Personal history of sudden cardiac arrest; Z79.01 Long term (current) use of anticoagulants; Z95.2 Presence of prosthetic heart valve; Z85.028 Personal history of other malignant neoplasm of stomach; Z74.01 Bed confinement status; Z95.0 Presence of cardiac pacemaker; Y83.3 Surgical operation with formation of external stoma as the cause of abnormal reaction of the patient, or of later complication, without mention of misadventure at the time of the procedure
CPT/HCPCS: 36415; 36430; 70450; 71045; 74176; 76705; 80048; 80053; 80150; 80162; 80185; 80306; 80307; 81001; 82140; 82270; 82550; 82553; 82962; 82977; 83036; 83605; 83735; 84100; 84443; 84484; 85014; 85018; 85025; 85610; 85730; 86850; 86900; 86901; 86920; 87040; 87045; 87075; 87081; 87086; 93005; 93306; 94002; 94003; 95819; 96361; 96365; 99291-25

== ENCOUNTER 2017-10-15 20:14 | Emergency (ER) | payer OTHER ==
[2017-10-15] MEDS: DIGOXIN 500 MCG INJ IV (21:31)
== END 2017-10-16 00:49 | disposition home or self-care (01) ==
LOC: E/R 10-16 00:49
DX: I48.2 Chronic atrial fibrillation (principal); G93.1 Anoxic brain damage, not elsewhere classified; R40.2122 Coma scale, eyes open, to pain, at arrival to emergency department; R40.2222 Coma scale, best verbal response, incomprehensible words, at arrival to emergency department; R40.2352 Coma scale, best motor response, localizes pain, at arrival to emergency department
CPT/HCPCS: 93005; 94002; 94003; 96374; 99284-25

== ENCOUNTER 2017-11-11 10:47 | Inpatient (IN) | payer OTHER ==
[2017-11-11 11:51] LABS: WHITE BLOOD COUNT 9.1 10^3/ul (4.8-10.8)
[2017-11-11 11:51] LABS: ABNORMAL IP MESSAGE 1; MEAN CORPUSCULAR HEMOGLOBIN 27.2 pg (29.0-33.0); MEAN CORPUSCULAR VOLUME 90.5 fl (82.0-101.0); MEAN PLATELET VOLUME 10.8 fl (7.4-10.4); PLATELET COUNT 89 10^3/UL (140-415); RED BLOOD COUNT 2.43 10^6/ul (4.20-5.40); RED CELL DISTRIBUTION WIDTH 17.6 % (11.5-14.5)
[2017-11-11] MEDS: TRANEXAMIC ACID 1,000 MG/10 ML VIAL IRR (12:00)
[2017-11-11 12:10] LABS: ALANINE AMINOTRANSFERASE 22 IU/L (13-69); ALBUMIN 2.6 g/dl (3.3-4.9); ALBUMIN/GLOBULIN RATIO 0.48; ALKALINE PHOSPHATASE 333 IU/L (42-121); ANION GAP 8 (8-16); ASPARTATE AMINO TRANSFERASE 35 IU/L (15-46); BILIRUBIN,INDIRECT 0.3 mg/dl (0-1.1); BILIRUBIN,TOTAL 0.3 mg/dl (0.2-1.3); BLOOD UREA NITROGEN 48 mg/dl (7-20); CALCIUM 8.1 mg/dl (8.4-10.2); CARBON DIOXIDE 32 mmol/L (21-31); CHLORIDE 99 mmol/L (97-110); CREATININE 0.58 mg/dl (0.44-1.00); GLUCOSE 116 mg/dl (70-220); POTASSIUM 4.8 mmol/L (3.5-5.1); SODIUM 134 mmol/L (135-144)
[2017-11-11 12:11] LABS: INR 4.26; PROTIME 42.4 Sec (11.9-14.9); PT RATIO 3.3
[2017-11-11] MEDS: PANTOPRAZOLE 40 MG INJ IV ×2 (12:16→18:23)
[2017-11-11] MEDS: SOD CHLORIDE 0.9% 1,000 ML IV (12:16)
[2017-11-11 12:21] LABS: POSITIVE DIFF @See below; TROPONIN-I 0.061 ng/ml (0.000-0.120)
[2017-11-11 12:22] LABS: HEMOGLOBIN 6.6 g/dl (12.0-16.0)
[2017-11-11 12:23] LABS: ADD MAN DIFF? YES
[2017-11-11] MEDS: SOD CHLORIDE 0.9% 250 ML IV (12:26)
[2017-11-11 13:22] LABS: ANISOCYTOSIS 1+ (0-0); BAND NEUTROPHILS % (M) 1 % (0-4); EOSINOPHILS % (M) 3 % (0-7); ERYTHROBLAST% (NRBC) (M) 1 % (0-0); GIANT THROMBO% (M) 1 % (0-0); HYPOCHROMASIA 1+ (0-0); LYMPHOCYTES #M 0.5 10^3/ul (0.8-2.9); LYMPHOCYTES % (M) 6 % (15-51); MONOCYTE #M 0.2 10^3/ul (0.3-0.9); MONOCYTES % (M) 3 % (0-11); PLATELET ESTIMATE DECREASED; SEG NEUT #M 7.9 10^3/ul (1.6-7.5); SEGMENTED NEUTROPHILS (M) % 87 % (39-77); SMUDGE%M 5 % (0-0)
[2017-11-11] MEDS ORDERED: ONDANSETRON 4 MG INJ IV (13:30)
[2017-11-11] MEDS ORDERED: ACETAMINOPHEN 325 MG TAB PO (13:30)
[2017-11-11] MEDS: PHYTONADIONE 10 MG in DEXTROSE 5% 50 ML IVPB (13:37)
[2017-11-11] MEDS: OCTREOTIDE 50 MCG INJ SC (14:07)
[2017-11-11] MEDS ORDERED: NACL 0.9% 3 ML SYG IV (15:00)
[2017-11-11] MEDS: DEXTROSE 5%-0.45% NACL 1,000 ML IV (18:23)
[2017-11-11 18:56] LABS: HEMATOCRIT 22.9 % (37.0-47.0); HEMOGLOBIN 7.3 g/dl (12.0-16.0)
[2017-11-11 20:52] LABS: IMMEDIATE SPIN CROSSMATCH 1 8
[2017-11-11] MEDS: ALBUTEROL 0.083% (NEB) 2.5 MG/3 ML AMP HHN (23:56)
[2017-11-12] MEDS: DEXTROSE 5%-0.45% NACL 1,000 ML IV ×4 (01:52→22:00)
[2017-11-12 02:32] LABS: HEMATOCRIT 20.1 % (37.0-47.0)
[2017-11-12 02:43] LABS: HEMOGLOBIN 6.5 g/dl (12.0-16.0)
[2017-11-12] MEDS: PANTOPRAZOLE 40 MG INJ IV ×2 (06:12→18:23)
[2017-11-12 08:50] LABS: ADD MAN DIFF? NO
[2017-11-12 08:52] LABS: ABNORMAL IP MESSAGE 1; BASOPHIL # 0.1 10^3/ul (0.0-0.1); BASOPHILS % 0.7 % (0.0-2.0); EOSINOPHILS # 0.3 10^3/ul (0.0-0.5); EOSINOPHILS % 3.6 % (0.0-7.0); HEMATOCRIT 23.4 % (37.0-47.0); HEMOGLOBIN 7.7 g/dl (12.0-16.0); LYMPHOCYTES # 0.5 10^3/ul (0.8-2.9); LYMPHOCYTES % 7.1 % (15.0-51.0); MEAN CORPUSCULAR HEMOGLOBIN 28.9 pg (29.0-33.0); MEAN CORPUSCULAR HGB CONC 32.9 g/dl (32.0-37.0); MEAN PLATELET VOLUME 10.8 fl (7.4-10.4); MONOCYTE # 0.4 10^3/ul (0.3-0.9); NEUTROPHIL # 5.9 10^3/ul (1.6-7.5); NEUTROPHILS % 83.2 % (39.0-77.0); PLATELET COUNT 71 10^3/UL (140-415); RED BLOOD COUNT 2.66 10^6/ul (4.20-5.40); RED CELL DISTRIBUTION WIDTH 15.9 % (11.5-14.5)
[2017-11-12 08:56] LABS: POSITIVE DIFF @See below
[2017-11-12 09:14] LABS: ALANINE AMINOTRANSFERASE 21 IU/L (13-69); ALBUMIN 2.4 g/dl (3.3-4.9); ALKALINE PHOSPHATASE 257 IU/L (42-121); ANION GAP 9 (8-16); ASPARTATE AMINO TRANSFERASE 33 IU/L (15-46); BILIRUBIN,INDIRECT 0.7 mg/dl (0-1.1); BILIRUBIN,TOTAL 0.7 mg/dl (0.2-1.3); BLOOD UREA NITROGEN 45 mg/dl (7-20); CALCIUM 7.9 mg/dl (8.4-10.2); CARBON DIOXIDE 31 mmol/L (21-31); CHLORIDE 101 mmol/L (97-110); CREATININE 0.56 mg/dl (0.44-1.00); GLUCOSE 102 mg/dl (70-220); POTASSIUM 3.7 mmol/L (3.5-5.1); SODIUM 137 mmol/L (135-144); TOTAL PROTEIN 7.2 g/dl (6.1-8.1)
[2017-11-12 09:16] LABS: INR 1.51; PROTIME 18.5 Sec (11.9-14.9); PT RATIO 1.4
[2017-11-12 12:28] LABS: HEMATOCRIT 22.8 % (37.0-47.0); HEMOGLOBIN 7.9 g/dl (12.0-16.0)
[2017-11-12] MEDS: BALSAM PERU/CASTOR OIL 60 GM TUBE TOP (13:00)
[2017-11-12] MEDS: COLLAGENASE 5 GM (UD JAR) TOP (13:15)
[2017-11-12 19:34] LABS: HEMATOCRIT 20.3 % (37.0-47.0)
[2017-11-12 20:03] LABS: HEMOGLOBIN 6.8 g/dl (12.0-16.0)
[2017-11-13] MEDS: DEXTROSE 5%-0.45% NACL 1,000 ML IV ×2 (05:04→15:57)
[2017-11-13] MEDS: PANTOPRAZOLE 40 MG INJ IV ×2 (05:57→16:53)
[2017-11-13 06:09] LABS: HEMATOCRIT 25.1 % (37.0-47.0); HEMOGLOBIN 8.6 g/dl (12.0-16.0)
[2017-11-13 06:28] LABS: PROTIME 18.4 Sec (11.9-14.9); PT RATIO 1.4
[2017-11-13 06:32] LABS: ALANINE AMINOTRANSFERASE 19 IU/L (13-69); ALBUMIN 2.1 g/dl (3.3-4.9); ALBUMIN/GLOBULIN RATIO 0.46; ALKALINE PHOSPHATASE 222 IU/L (42-121); ANION GAP 6 (8-16); ASPARTATE AMINO TRANSFERASE 29 IU/L (15-46); BLOOD UREA NITROGEN 36 mg/dl (7-20); CALCIUM 7.9 mg/dl (8.4-10.2); CARBON DIOXIDE 29 mmol/L (21-31); CHLORIDE 105 mmol/L (97-110); CREATININE 0.52 mg/dl (0.44-1.00); GLUCOSE 104 mg/dl (70-220); POTASSIUM 3.5 mmol/L (3.5-5.1); SODIUM 136 mmol/L (135-144); TOTAL PROTEIN 6.6 g/dl (6.1-8.1)
[2017-11-13] MEDS: BALSAM PERU/CASTOR OIL 60 GM TUBE TOP (08:31)
[2017-11-13] MEDS: COLLAGENASE 5 GM (UD JAR) TOP (08:31)
[2017-11-13] MEDS: morphine 2 MG INJ IV ×2 (10:02→16:53)
[2017-11-13 10:28] LABS: HEMATOCRIT 24.9 % (37.0-47.0); HEMOGLOBIN 8.4 g/dl (12.0-16.0)
[2017-11-13] MEDS: PHYTONADIONE 5 MG in DEXTROSE 5% 50 ML IVPB (12:34)
[2017-11-13] MEDS: FUROSEMIDE 40 MG INJ IV (18:01)
[2017-11-13 18:49] LABS: HEMATOCRIT 22.1 % (37.0-47.0); HEMOGLOBIN 7.5 g/dl (12.0-16.0)
[2017-11-14] MEDS: morphine 2 MG INJ IV ×2 (01:33→05:21)
[2017-11-14 02:27] LABS: HEMATOCRIT 20.7 % (37.0-47.0)
[2017-11-14 02:46] LABS: HEMOGLOBIN 6.9 g/dl (12.0-16.0)
[2017-11-14] MEDS: FUROSEMIDE 40 MG INJ IV (04:34)
[2017-11-14 05:29] LABS: ADD MAN DIFF? NO
[2017-11-14 05:32] LABS: WHITE BLOOD COUNT 12.1 10^3/ul (4.8-10.8)
[2017-11-14 05:32] LABS: ABNORMAL IP MESSAGE 1; BASOPHIL # 0.1 10^3/ul (0.0-0.1); BASOPHILS % 0.5 % (0.0-2.0); EOSINOPHILS # 0.7 10^3/ul (0.0-0.5); EOSINOPHILS % 5.4 % (0.0-7.0); HEMATOCRIT 24.7 % (37.0-47.0); HEMOGLOBIN 8.3 g/dl (12.0-16.0); LYMPHOCYTES # 1.5 10^3/ul (0.8-2.9); LYMPHOCYTES % 12.4 % (15.0-51.0); MEAN CORPUSCULAR HEMOGLOBIN 29.1 pg (29.0-33.0); MEAN CORPUSCULAR HGB CONC 33.6 g/dl (32.0-37.0); MEAN CORPUSCULAR VOLUME 86.7 fl (82.0-101.0); MEAN PLATELET VOLUME 10.5 fl (7.4-10.4); MONOCYTE # 0.9 10^3/ul (0.3-0.9); MONOCYTES % 7.1 % (0.0-11.0); NEUTROPHILS % 74.4 % (39.0-77.0); PLATELET COUNT 84 10^3/UL (140-415); RED BLOOD COUNT 2.85 10^6/ul (4.20-5.40); RED CELL DISTRIBUTION WIDTH 16.5 % (11.5-14.5)
[2017-11-14 05:41] LABS: POSITIVE DIFF @See below
[2017-11-14] MEDS: PANTOPRAZOLE 40 MG INJ IV ×2 (05:58→18:06)
[2017-11-14 06:01] LABS: INR 1.27; PROTIME 16.1 Sec (11.9-14.9); PT RATIO 1.3
[2017-11-14 06:09] LABS: ALANINE AMINOTRANSFERASE 24 IU/L (13-69); ALBUMIN 2.4 g/dl (3.3-4.9); ALBUMIN/GLOBULIN RATIO 0.51; ALKALINE PHOSPHATASE 236 IU/L (42-121); ANION GAP 7 (8-16); ASPARTATE AMINO TRANSFERASE 31 IU/L (15-46); BILIRUBIN,INDIRECT 0.8 mg/dl (0-1.1); BILIRUBIN,TOTAL 0.8 mg/dl (0.2-1.3); BLOOD UREA NITROGEN 27 mg/dl (7-20); CARBON DIOXIDE 30 mmol/L (21-31); CHLORIDE 105 mmol/L (97-110); CREATININE 0.56 mg/dl (0.44-1.00); GLUCOSE 95 mg/dl (70-220); POTASSIUM 3.4 mmol/L (3.5-5.1); SODIUM 139 mmol/L (135-144); TOTAL PROTEIN 7.1 g/dl (6.1-8.1)
[2017-11-14] MEDS: BALSAM PERU/CASTOR OIL 60 GM TUBE TOP (08:41)
[2017-11-14] MEDS: COLLAGENASE 5 GM (UD JAR) TOP (08:41)
[2017-11-14 09:03] LABS: IMMEDIATE SPIN CROSSMATCH 1
[2017-11-14] MEDS: DEXTROSE 5%-0.45% NACL 1,000 ML IV (14:20)
[2017-11-14 14:47] LABS: HEMATOCRIT 26.7 % (37.0-47.0)
[2017-11-15 05:33] LABS: ADD MAN DIFF? NO
[2017-11-15 05:54] LABS: WHITE BLOOD COUNT 5.9 10^3/ul (4.8-10.8)
[2017-11-15 05:54] LABS: ABNORMAL IP MESSAGE 1; BASOPHIL # 0.1 10^3/ul (0.0-0.1); BASOPHILS % 0.8 % (0.0-2.0); EOSINOPHILS # 0.6 10^3/ul (0.0-0.5); EOSINOPHILS % 9.3 % (0.0-7.0); HEMATOCRIT 26.5 % (37.0-47.0); HEMOGLOBIN 8.9 g/dl (12.0-16.0); LYMPHOCYTES # 0.6 10^3/ul (0.8-2.9); LYMPHOCYTES % 9.5 % (15.0-51.0); MEAN CORPUSCULAR HEMOGLOBIN 28.6 pg (29.0-33.0); MEAN CORPUSCULAR HGB CONC 33.6 g/dl (32.0-37.0); MEAN CORPUSCULAR VOLUME 85.2 fl (82.0-101.0); MEAN PLATELET VOLUME 11.7 fl (7.4-10.4); MONOCYTE # 0.7 10^3/ul (0.3-0.9); MONOCYTES % 11.9 % (0.0-11.0); NEUTROPHILS % 68.2 % (39.0-77.0); PLATELET COUNT 66 10^3/UL (140-415); RED BLOOD COUNT 3.11 10^6/ul (4.20-5.40); RED CELL DISTRIBUTION WIDTH 17.6 % (11.5-14.5)
[2017-11-15 06:02] LABS: INR 1.39; PROTIME 17.3 Sec (11.9-14.9); PT RATIO 1.4
[2017-11-15 06:10] LABS: POSITIVE DIFF @See below
[2017-11-15] MEDS: PANTOPRAZOLE 40 MG INJ IV ×2 (06:16→17:21)
[2017-11-15] MEDS: BALSAM PERU/CASTOR OIL 60 GM TUBE TOP (09:19)
[2017-11-15] MEDS: SOD CHLORIDE 0.9% 500 ML IV (09:19)
[2017-11-15] MEDS: COLLAGENASE 5 GM (UD JAR) TOP (09:20)
[2017-11-15] MEDS: DEXTROSE 5%-0.45% NACL 1,000 ML IV (10:25)
[2017-11-16 04:56] LABS: AADO2 Arterial 65.3 mmHg (7.0-24.0); Allen Test ACCEPTAB; Arterial Base Excess 1.1 mmol/L (-3.0-3); Arterial COHb 0.4 % (0.0-3.0); Arterial Fraction of Oxyhgb 97.5 % (93.0-99.0); Arterial HCO3 24.2 mmol/L (22.0-26.0); Arterial MetHb 0.1 % (0.0-1.5); Arterial pCO2 32.2 mmhg (35-45); MODE VENT - AC; Site Right Radial
[2017-11-16 05:13] LABS: ADD MAN DIFF? NO
[2017-11-16 05:19] LABS: ABNORMAL IP MESSAGE 1; BASOPHIL # 0.1 10^3/ul (0.0-0.1); BASOPHILS % 0.8 % (0.0-2.0); EOSINOPHILS # 0.6 10^3/ul (0.0-0.5); HEMATOCRIT 26.8 % (37.0-47.0); HEMOGLOBIN 9.1 g/dl (12.0-16.0); LYMPHOCYTES # 0.7 10^3/ul (0.8-2.9); LYMPHOCYTES % 8.2 % (15.0-51.0); MEAN CORPUSCULAR HEMOGLOBIN 28.9 pg (29.0-33.0); MEAN CORPUSCULAR VOLUME 85.1 fl (82.0-101.0); MEAN PLATELET VOLUME 11.4 fl (7.4-10.4); MONOCYTE # 0.8 10^3/ul (0.3-0.9); MONOCYTES % 10.3 % (0.0-11.0); NEUTROPHIL # 5.9 10^3/ul (1.6-7.5); NEUTROPHILS % 73.6 % (39.0-77.0); PLATELET COUNT 79 10^3/UL (140-415); RED BLOOD COUNT 3.15 10^6/ul (4.20-5.40); RED CELL DISTRIBUTION WIDTH 17.8 % (11.5-14.5)
[2017-11-16 05:29] LABS: POSITIVE DIFF @See below
[2017-11-16 05:38] LABS: ANION GAP 9 (8-16); BLOOD UREA NITROGEN 22 mg/dl (7-20); CALCIUM 7.8 mg/dl (8.4-10.2); CARBON DIOXIDE 26 mmol/L (21-31); CHLORIDE 105 mmol/L (97-110); CREATININE 0.52 mg/dl (0.44-1.00); GLUCOSE 145 mg/dl (70-220); POTASSIUM 3.1 mmol/L (3.5-5.1); SODIUM 137 mmol/L (135-144)
[2017-11-16 05:39] LABS: INR 1.28; PROTIME 16.2 Sec (11.9-14.9); PT RATIO 1.3
[2017-11-16] MEDS: PANTOPRAZOLE 40 MG INJ IV (06:03)
[2017-11-16] MEDS: DEXTROSE 5%-0.45% NACL 1,000 ML IV (06:16)
[2017-11-16] MEDS: COLLAGENASE 5 GM (UD JAR) TOP (08:14)
[2017-11-16] MEDS: BALSAM PERU/CASTOR OIL 60 GM TUBE TOP (08:14)
[2017-11-16] MEDS: POTASSIUM CHLORIDE 20 MEQ POWDER FOR ORAL SOLN PO ×2 (09:18→13:29)
[2017-11-16] MEDS: BUMETANIDE 1 MG INJ IV (09:18)
[2017-11-16] MEDS: morphine 2 MG INJ IV ×2 (11:33→15:57)
== END 2017-11-16 18:05 | DRG 207 ==
LOC: ICU 13:25 → TEL 11-14 14:02 → E/R 10:47 → ICU 11-14 14:10
PROC: 5A1955Z Respiratory Ventilation, Greater than 96 Consecutive Hours (ICD-10-PCS; principal; 2017-11-11)
DX: J95.01 Hemorrhage from tracheostomy stoma (principal); L89.153 Pressure ulcer of sacral region, stage 3; G93.40 Encephalopathy, unspecified; R53.2 Functional quadriplegia; D62 Acute posthemorrhagic anemia; J96.10 Chronic respiratory failure, unspecified whether with hypoxia or hypercapnia; D68.32 Hemorrhagic disorder due to extrinsic circulating anticoagulants; Z99.11 Dependence on respirator [ventilator] status; K94.21 Gastrostomy hemorrhage; I50.9 Heart failure, unspecified; I48.0 Paroxysmal atrial fibrillation; R13.10 Dysphagia, unspecified; K74.69 Other cirrhosis of liver; K21.9 Gastro-esophageal reflux disease without esophagitis; I10 Essential (primary) hypertension; E11.9 Type 2 diabetes mellitus without complications; Y84.8 Other medical procedures as the cause of abnormal reaction of the patient, or of later complication, without mention of misadventure at the time of the procedure; Y92.129 Unspecified place in nursing home as the place of occurrence of the external cause; Z79.01 Long term (current) use of anticoagulants; Z95.2 Presence of prosthetic heart valve; T45.515A Adverse effect of anticoagulants, initial encounter; Z74.01 Bed confinement status; Z79.4 Long term (current) use of insulin
CPT/HCPCS: 36415; 36430; 36600; 71045; 80048; 80053; 82803; 84484; 85014; 85018; 85025; 85610; 85730; 86850; 86900; 86901; 86920; 87081; 93005; 94002; 94003; 94640; 96372; 96374; 96375; 96376; 99291-25

== ENCOUNTER 2017-11-26 12:11 | Inpatient (IN) | payer OTHER ==
[2017-11-26 12:57] LABS: ADD MAN DIFF? NO
[2017-11-26 12:59] LABS: WHITE BLOOD COUNT 4.2 10^3/ul (4.8-10.8)
[2017-11-26 12:59] LABS: ABNORMAL IP MESSAGE 1; BASOPHILS % 0.7 % (0.0-2.0); EOSINOPHILS # 0.1 10^3/ul (0.0-0.5); EOSINOPHILS % 1.7 % (0.0-7.0); HEMATOCRIT 51.4 % (37.0-47.0); HEMOGLOBIN 15.8 g/dl (12.0-16.0); LYMPHOCYTES # 0.2 10^3/ul (0.8-2.9); MEAN CORPUSCULAR HEMOGLOBIN 28.2 pg (29.0-33.0); MEAN CORPUSCULAR HGB CONC 30.7 g/dl (32.0-37.0); MEAN CORPUSCULAR VOLUME 91.8 fl (82.0-101.0); MEAN PLATELET VOLUME 9.8 fl (7.4-10.4); MONOCYTE # 0.2 10^3/ul (0.3-0.9); MONOCYTES % 5.5 % (0.0-11.0); NEUTROPHIL # 3.7 10^3/ul (1.6-7.5); NEUTROPHILS % 87.9 % (39.0-77.0); PLATELET COUNT 84 10^3/UL (140-415); RED CELL DISTRIBUTION WIDTH 18.8 % (11.5-14.5)
[2017-11-26 13:00] LABS: POSITIVE DIFF @See below
[2017-11-26 13:06] LABS: ALANINE AMINOTRANSFERASE 37 IU/L (13-69); ALBUMIN 2.9 g/dl (3.3-4.9); ALKALINE PHOSPHATASE 372 IU/L (42-121); ASPARTATE AMINO TRANSFERASE 51 IU/L (15-46); BILIRUBIN,INDIRECT 0.3 mg/dl (0-1.1); BILIRUBIN,TOTAL 0.3 mg/dl (0.2-1.3); BLOOD UREA NITROGEN 66 mg/dl (7-20); CALCIUM 8.5 mg/dl (8.4-10.2); CHLORIDE 88 mmol/L (97-110); CREATININE 0.63 mg/dl (0.44-1.00); GLUCOSE 106 mg/dl (70-220); POTASSIUM 3.9 mmol/L (3.5-5.1); SODIUM 136 mmol/L (135-144); TOTAL PROTEIN 7.7 g/dl (6.1-8.1)
[2017-11-26 13:12] LABS: INR 3.21; PROTIME 33.8 Sec (11.9-14.9); PT RATIO 2.6
[2017-11-26 13:13] LABS: ANION GAP 13 (8-16); PARTIAL THROMBOPLASTIN TIME 63.8 Sec (25.0-35.0)
[2017-11-26 13:15] LABS: CARBON DIOXIDE 39 mmol/L (21-31)
[2017-11-26 13:18] LABS: B-TYPE NATRIURETIC PEPTIDE 18000 PG/ML (0-125); TROPONIN-I 0.035 ng/ml (0.000-0.120)
[2017-11-26 13:20] LABS: ADD UMIC YES; LIPASE 370 U/L (23-300); UR ASCORBIC ACID 40 mg/dL (NEGATIVE); UR BACTERIA FEW /HPF (NONE SEEN); UR BILIRUBIN (Dip) NEGATIVE (NEGATIVE); UR BLOOD (Dip) NEGATIVE (NEGATIVE); UR CLARITY CLEAR (CLEAR); UR COLOR YELLOW (YELLOW); UR GLUCOSE (Dip) NEGATIVE (NEGATIVE); UR KETONES (Dip) NEGATIVE (NEGATIVE); UR LEUKOCYTE ESTERASE (Dip) 2+ Leu/ul (NEGATIVE); UR NITRITE (Dip) NEGATIVE (NEGATIVE); UR RBC 4 /HPF (0-5); UR SPECIFIC GRAVITY (Dip) 1.011 (1.003-1.030); UR TOTAL PROTEIN (Dip) NEGATIVE (NEGATIVE); UR UROBILINOGEN (Dip) NEGATIVE (NEGATIVE); UR WBC 3 /HPF (0-5)
[2017-11-26] MEDS: PIPER-TAZO 3.375 GM IV (PMX) 100 ML IVPB ×2 (13:42→23:55)
[2017-11-26] MEDS: SOD CHLORIDE 0.9% 1,000 ML IV (14:00)
[2017-11-26] MEDS: VANCOMYCIN 1 GM (PMX) 250 ML IVPB (15:34)
[2017-11-26] MEDS ORDERED: PENDING SANTYL ORDER FOR WOUND CARE XX (16:00)
[2017-11-26] MEDS: DIATR MEGLU/DIATRIZOATE SODIUM 120 ML BTL (18:02)
[2017-11-26] MEDS: BUMETANIDE 1 MG TAB GTB (20:40)
[2017-11-26] MEDS: SUCRALFATE 1 GM TAB GTB ×2 (20:41→20:46)
[2017-11-26] MEDS: SEVELAMER CARBONATE 0.8 GM PKT GTB (20:41)
[2017-11-26] MEDS: CALCIUM ACETATE 667 MG CAP GTB (20:41)
[2017-11-26] MEDS: LEVETIRACETAM (100 MG/ML) 5ML CUP GTB (20:42)
[2017-11-26] MEDS: BISACODYL 10 MG SUPP PR (20:45)
[2017-11-26] MEDS: MAGNESIUM HYDROXIDE 30ML CUP GTB (20:45)
[2017-11-27] MEDS: PIPER-TAZO 3.375 GM IV (PMX) 100 ML IVPB ×4 (06:11→23:44)
[2017-11-27] MEDS: BUMETANIDE 1 MG TAB GTB ×2 (06:11→17:51)
[2017-11-27] MEDS: PANTOPRAZOLE (EC) 40 MG TAB PO (06:12)
[2017-11-27] MEDS: SUCRALFATE 1 GM TAB GTB ×4 (06:14→20:58)
[2017-11-27 06:17] LABS: ADD MAN DIFF? NO
[2017-11-27 06:37] LABS: WHITE BLOOD COUNT 5.7 10^3/ul (4.8-10.8)
[2017-11-27 06:37] LABS: ABNORMAL IP MESSAGE 1; BASOPHIL # 0.1 10^3/ul (0.0-0.1); BASOPHILS % 0.9 % (0.0-2.0); EOSINOPHILS # 0.3 10^3/ul (0.0-0.5); EOSINOPHILS % 5.1 % (0.0-7.0); HEMATOCRIT 25.3 % (37.0-47.0); LYMPHOCYTES # 0.5 10^3/ul (0.8-2.9); LYMPHOCYTES % 9.1 % (15.0-51.0); MEAN CORPUSCULAR HEMOGLOBIN 28.9 pg (29.0-33.0); MEAN CORPUSCULAR HGB CONC 31.6 g/dl (32.0-37.0); MEAN CORPUSCULAR VOLUME 91.3 fl (82.0-101.0); MEAN PLATELET VOLUME 10.5 fl (7.4-10.4); MONOCYTE # 0.4 10^3/ul (0.3-0.9); NEUTROPHIL # 4.4 10^3/ul (1.6-7.5); NEUTROPHILS % 77.5 % (39.0-77.0); PLATELET COUNT 167 10^3/UL (140-415); RED BLOOD COUNT 2.77 10^6/ul (4.20-5.40); RED CELL DISTRIBUTION WIDTH 17.9 % (11.5-14.5)
[2017-11-27 06:49] LABS: ANION GAP 12 (8-16); BLOOD UREA NITROGEN 65 mg/dl (7-20); CALCIUM 8.5 mg/dl (8.4-10.2); CARBON DIOXIDE 35 mmol/L (21-31); CHLORIDE 94 mmol/L (97-110); CREATININE 0.66 mg/dl (0.44-1.00); GLUCOSE 76 mg/dl (70-220); POTASSIUM 3.4 mmol/L (3.5-5.1); SODIUM 138 mmol/L (135-144)
[2017-11-27 06:50] LABS: INR 2.25; PROTIME 25.4 Sec (11.9-14.9)
[2017-11-27 06:51] LABS: POSITIVE DIFF @See below
[2017-11-27] MEDS: SEVELAMER CARBONATE 0.8 GM PKT GTB ×3 (07:35→17:51)
[2017-11-27] MEDS: CALCIUM ACETATE 667 MG CAP GTB ×3 (07:35→17:51)
[2017-11-27] MEDS: LEVETIRACETAM (100 MG/ML) 5ML CUP GTB ×2 (09:23→20:56)
[2017-11-27] MEDS: SENNA TAB GTB (09:24)
[2017-11-27] MEDS: LOSARTAN 50 MG TAB GTB (09:25)
[2017-11-27 09:33] LABS: ADD MAN DIFF? NO
[2017-11-27 09:37] LABS: ABNORMAL IP MESSAGE 1; BASOPHIL # 0.1 10^3/ul (0.0-0.1); BASOPHILS % 1.1 % (0.0-2.0); EOSINOPHILS # 0.2 10^3/ul (0.0-0.5); EOSINOPHILS % 4.3 % (0.0-7.0); HEMATOCRIT 25.5 % (37.0-47.0); HEMOGLOBIN 7.9 g/dl (12.0-16.0); LYMPHOCYTES # 0.6 10^3/ul (0.8-2.9); LYMPHOCYTES % 10.7 % (15.0-51.0); MEAN CORPUSCULAR HEMOGLOBIN 28.4 pg (29.0-33.0); MEAN CORPUSCULAR VOLUME 91.7 fl (82.0-101.0); MEAN PLATELET VOLUME 10.3 fl (7.4-10.4); MONOCYTE # 0.5 10^3/ul (0.3-0.9); MONOCYTES % 8.6 % (0.0-11.0); NEUTROPHILS % 75.1 % (39.0-77.0); PLATELET COUNT 157 10^3/UL (140-415); RED BLOOD COUNT 2.78 10^6/ul (4.20-5.40); RED CELL DISTRIBUTION WIDTH 18.1 % (11.5-14.5)
[2017-11-27 09:37] LABS: WHITE BLOOD COUNT 5.3 10^3/ul (4.8-10.8)
[2017-11-27] MEDS: POTASSIUM CHLORIDE (SR) 20 MEQ TAB PO (11:16)
[2017-11-27] MEDS ORDERED: VANCOMYCIN IV PER PHARMACY XX (12:30)
[2017-11-27] MEDS: DIGOXIN 0.125 MG TAB GTB ×2 (12:58→13:00)
[2017-11-27 13:28] LABS: LACTIC ACID 0.6 mmol/L (0.5-2.0)
[2017-11-27] MEDS: LINEZOLID 600 MG/D5W (PMX) 300 ML IVPB ×2 (14:00→22:50)
[2017-11-27] MEDS: LIDOCAINE 1% (MDV) 10 ML INJ (16:33)
[2017-11-27] MEDS: MAGNESIUM HYDROXIDE 30ML CUP GTB (17:51)
[2017-11-27] MEDS: BISACODYL 10 MG SUPP PR (17:52)
[2017-11-28] MEDS: BUMETANIDE 1 MG TAB GTB ×2 (05:32→17:53)
[2017-11-28] MEDS: PIPER-TAZO 3.375 GM IV (PMX) 100 ML IVPB ×3 (05:33→17:53)
[2017-11-28] MEDS: PANTOPRAZOLE (EC) 40 MG TAB PO (06:12)
[2017-11-28] MEDS: SUCRALFATE 1 GM TAB GTB ×4 (06:13→20:10)
[2017-11-28] MEDS: SEVELAMER CARBONATE 0.8 GM PKT GTB ×3 (08:53→17:53)
[2017-11-28] MEDS: POTASSIUM CHLORIDE (SR) 20 MEQ TAB PO (08:54)
[2017-11-28] MEDS: CALCIUM ACETATE 667 MG CAP GTB ×3 (08:54→17:53)
[2017-11-28] MEDS: SENNA TAB GTB (08:54)
[2017-11-28] MEDS: LOSARTAN 50 MG TAB GTB (08:55)
[2017-11-28] MEDS: LEVETIRACETAM (100 MG/ML) 5ML CUP GTB ×2 (08:55→20:10)
[2017-11-28] MEDS: LINEZOLID 600 MG/D5W (PMX) 300 ML IVPB ×2 (08:56→20:30)
[2017-11-28] MEDS: DIGOXIN 0.125 MG TAB GTB (13:00)
[2017-11-28] MEDS: MAGNESIUM HYDROXIDE 30ML CUP GTB (16:00)
[2017-11-28] MEDS: BISACODYL 10 MG SUPP PR (16:00)
[2017-11-28] MEDS: WARFARIN 2 MG TAB PO (20:09)
[2017-11-28] MEDS: ERTAPENEM SODIUM 1 GM in SOD CHLORIDE 0.9% 100 ML IVPB (22:55)
[2017-11-29 05:34] LABS: ADD MAN DIFF? NO
[2017-11-29 05:43] LABS: WHITE BLOOD COUNT 6.1 10^3/ul (4.8-10.8)
[2017-11-29 05:43] LABS: ABNORMAL IP MESSAGE 1; BASOPHIL # 0.1 10^3/ul (0.0-0.1); BASOPHILS % 0.8 % (0.0-2.0); EOSINOPHILS # 0.3 10^3/ul (0.0-0.5); EOSINOPHILS % 5.2 % (0.0-7.0); HEMATOCRIT 27.1 % (37.0-47.0); HEMOGLOBIN 8.5 g/dl (12.0-16.0); LYMPHOCYTES # 0.5 10^3/ul (0.8-2.9); LYMPHOCYTES % 8.7 % (15.0-51.0); MEAN CORPUSCULAR HEMOGLOBIN 28.4 pg (29.0-33.0); MEAN CORPUSCULAR HGB CONC 31.4 g/dl (32.0-37.0); MEAN CORPUSCULAR VOLUME 90.6 fl (82.0-101.0); MEAN PLATELET VOLUME 10.3 fl (7.4-10.4); MONOCYTE # 0.5 10^3/ul (0.3-0.9); MONOCYTES % 8.5 % (0.0-11.0); NEUTROPHIL # 4.7 10^3/ul (1.6-7.5); NEUTROPHILS % 76.5 % (39.0-77.0); PLATELET COUNT 149 10^3/UL (140-415); RED BLOOD COUNT 2.99 10^6/ul (4.20-5.40); RED CELL DISTRIBUTION WIDTH 17.9 % (11.5-14.5)
[2017-11-29 06:14] LABS: POSITIVE DIFF @See below
[2017-11-29] MEDS: SUCRALFATE 1 GM TAB GTB ×4 (06:15→21:10)
[2017-11-29] MEDS: BUMETANIDE 1 MG TAB GTB ×2 (06:15→17:39)
[2017-11-29 06:16] LABS: ALANINE AMINOTRANSFERASE 28 IU/L (13-69); ALBUMIN 2.6 g/dl (3.3-4.9); ALBUMIN/GLOBULIN RATIO 0.52; ALKALINE PHOSPHATASE 285 IU/L (42-121); ANION GAP 11 (8-16); ASPARTATE AMINO TRANSFERASE 26 IU/L (15-46); BILIRUBIN,INDIRECT 0.4 mg/dl (0-1.1); BILIRUBIN,TOTAL 0.4 mg/dl (0.2-1.3); BLOOD UREA NITROGEN 47 mg/dl (7-20); CALCIUM 7.9 mg/dl (8.4-10.2); CARBON DIOXIDE 29 mmol/L (21-31); CHLORIDE 99 mmol/L (97-110); CREATININE 0.83 mg/dl (0.44-1.00); GLUCOSE 113 mg/dl (70-220); POTASSIUM 3.6 mmol/L (3.5-5.1); SODIUM 135 mmol/L (135-144); TOTAL PROTEIN 7.6 g/dl (6.1-8.1)
[2017-11-29] MEDS: LANSOPRAZOLE 30 MG CAP GTB (06:16)
[2017-11-29 06:24] LABS: MAGNESIUM 2.7 mg/dl (1.7-2.5)
[2017-11-29 06:24] LABS: PHOSPHORUS 2.9 mg/dl (2.5-4.9)
[2017-11-29] MEDS: CALCIUM ACETATE 667 MG CAP GTB ×3 (06:35→17:39)
[2017-11-29] MEDS: SEVELAMER CARBONATE 0.8 GM PKT GTB ×3 (06:35→17:40)
[2017-11-29] MEDS: LOSARTAN 50 MG TAB GTB (08:20)
[2017-11-29] MEDS: POTASSIUM CHLORIDE (SR) 20 MEQ TAB PO (08:20)
[2017-11-29] MEDS: LEVETIRACETAM (100 MG/ML) 5ML CUP GTB ×2 (08:20→21:08)
[2017-11-29] MEDS: LINEZOLID 600 MG/D5W (PMX) 300 ML IVPB ×2 (08:21→21:07)
[2017-11-29] MEDS: SENNA TAB GTB (08:21)
[2017-11-29] MEDS: DIGOXIN 0.125 MG TAB GTB (12:25)
[2017-11-29] MEDS: BISACODYL 10 MG SUPP PR (16:00)
[2017-11-29] MEDS: MAGNESIUM HYDROXIDE 30ML CUP GTB (16:00)
[2017-11-29] MEDS: WARFARIN 2 MG TAB PO (17:40)
[2017-11-29] MEDS: ERTAPENEM SODIUM 1 GM in SOD CHLORIDE 0.9% 100 ML IVPB (22:00)
[2017-11-30 06:05] LABS: INR 2.71; PROTIME 29.5 Sec (11.9-14.9); PT RATIO 2.3
[2017-11-30] MEDS: BUMETANIDE 1 MG TAB GTB ×2 (06:08→17:09)
[2017-11-30] MEDS: SUCRALFATE 1 GM TAB GTB ×4 (06:09→21:34)
[2017-11-30] MEDS: LANSOPRAZOLE 30 MG CAP GTB (06:09)
[2017-11-30] MEDS: SEVELAMER CARBONATE 0.8 GM PKT GTB ×3 (08:21→17:09)
[2017-11-30] MEDS: LINEZOLID 600 MG/D5W (PMX) 300 ML IVPB ×2 (08:21→21:37)
[2017-11-30] MEDS: LEVETIRACETAM (100 MG/ML) 5ML CUP GTB ×2 (08:21→21:34)
[2017-11-30] MEDS: CALCIUM ACETATE 667 MG CAP GTB ×3 (08:22→17:08)
[2017-11-30] MEDS: LOSARTAN 50 MG TAB GTB (08:22)
[2017-11-30] MEDS: POTASSIUM CHLORIDE (SR) 20 MEQ TAB PO (08:22)
[2017-11-30] MEDS: SENNA TAB GTB (08:22)
[2017-11-30] MEDS: DIGOXIN 0.125 MG TAB GTB (13:00)
[2017-11-30] MEDS: BISACODYL 10 MG SUPP PR (15:51)
[2017-11-30] MEDS: MAGNESIUM HYDROXIDE 30ML CUP GTB (15:51)
[2017-11-30] MEDS: WARFARIN 2 MG TAB PO (17:08)
[2017-11-30] MEDS: ERTAPENEM SODIUM 1 GM in SOD CHLORIDE 0.9% 100 ML IVPB (21:39)
[2017-12-01] MEDS: BUMETANIDE 1 MG TAB GTB ×2 (05:26→18:28)
[2017-12-01 06:13] LABS: INR 3.04; PROTIME 32.4 Sec (11.9-14.9); PT RATIO 2.5
[2017-12-01] MEDS: SEVELAMER CARBONATE 0.8 GM PKT GTB ×3 (07:34→18:22)
[2017-12-01] MEDS: CALCIUM ACETATE 667 MG CAP GTB ×3 (07:34→18:21)
[2017-12-01] MEDS: LANSOPRAZOLE 30 MG CAP GTB (07:35)
[2017-12-01] MEDS: SUCRALFATE 1 GM TAB GTB ×4 (07:35→21:59)
[2017-12-01] MEDS: SENNA TAB GTB (09:00)
[2017-12-01] MEDS: LOSARTAN 50 MG TAB GTB (09:14)
[2017-12-01] MEDS: POTASSIUM CHLORIDE (SR) 20 MEQ TAB PO (09:14)
[2017-12-01] MEDS: LEVETIRACETAM (100 MG/ML) 5ML CUP GTB ×2 (09:14→22:00)
[2017-12-01] MEDS: LINEZOLID 600 MG/D5W (PMX) 300 ML IVPB ×2 (09:16→21:00)
[2017-12-01] MEDS: DIGOXIN 0.125 MG TAB GTB (12:14)
[2017-12-01] MEDS: MAGNESIUM HYDROXIDE 30ML CUP GTB (16:00)
[2017-12-01] MEDS: BISACODYL 10 MG SUPP PR (16:00)
[2017-12-01] MEDS: WARFARIN 2 MG TAB PO (18:23)
[2017-12-01] MEDS: ERTAPENEM SODIUM 1 GM in SOD CHLORIDE 0.9% 100 ML IVPB (22:59)
[2017-12-02] MEDS: BUMETANIDE 1 MG TAB GTB ×2 (05:02→17:13)
[2017-12-02] MEDS: LEVETIRACETAM (100 MG/ML) 5ML CUP GTB ×2 (08:23→21:17)
[2017-12-02] MEDS: LINEZOLID 600 MG/D5W (PMX) 300 ML IVPB ×2 (08:23→21:20)
[2017-12-02] MEDS: CALCIUM ACETATE 667 MG CAP GTB ×3 (08:23→17:14)
[2017-12-02] MEDS: SENNA TAB GTB (08:23)
[2017-12-02] MEDS: SUCRALFATE 1 GM TAB GTB ×4 (08:24→21:17)
[2017-12-02] MEDS: SEVELAMER CARBONATE 0.8 GM PKT GTB ×3 (08:24→17:14)
[2017-12-02] MEDS: LOSARTAN 50 MG TAB GTB (08:25)
[2017-12-02] MEDS: POTASSIUM CHLORIDE (SR) 20 MEQ TAB PO (08:25)
[2017-12-02] MEDS: LANSOPRAZOLE 30 MG CAP GTB (08:25)
[2017-12-02 08:39] LABS: INR 3.08; PROTIME 32.7 Sec (11.9-14.9); PT RATIO 2.6
[2017-12-02] MEDS: DIGOXIN 0.125 MG TAB GTB (13:00)
[2017-12-02] MEDS: BISACODYL 10 MG SUPP PR (16:00)
[2017-12-02] MEDS: MAGNESIUM HYDROXIDE 30ML CUP GTB (16:00)
[2017-12-02] MEDS: WARFARIN 2 MG TAB PO (16:13)
[2017-12-02] MEDS: ERTAPENEM SODIUM 1 GM in SOD CHLORIDE 0.9% 100 ML IVPB (23:11)
[2017-12-03] MEDS: BUMETANIDE 1 MG TAB GTB ×2 (05:17→17:29)
[2017-12-03 09:17] LABS: INR 3.27; PT RATIO 2.7
[2017-12-03] MEDS: LEVETIRACETAM (100 MG/ML) 5ML CUP GTB ×2 (09:36→21:02)
[2017-12-03] MEDS: POTASSIUM CHLORIDE (SR) 20 MEQ TAB PO (09:36)
[2017-12-03] MEDS: LANSOPRAZOLE 30 MG CAP GTB (09:36)
[2017-12-03] MEDS: SENNA TAB GTB (09:37)
[2017-12-03] MEDS: SUCRALFATE 1 GM TAB GTB ×4 (09:37→21:02)
[2017-12-03] MEDS: LOSARTAN 50 MG TAB GTB (09:37)
[2017-12-03] MEDS: CALCIUM ACETATE 667 MG CAP GTB ×3 (09:37→17:29)
[2017-12-03] MEDS: LINEZOLID 600 MG/D5W (PMX) 300 ML IVPB ×2 (09:39→21:02)
[2017-12-03] MEDS: SEVELAMER CARBONATE 0.8 GM PKT GTB ×3 (09:39→17:29)
[2017-12-03] MEDS: DIGOXIN 0.125 MG TAB GTB (13:00)
[2017-12-03 15:21] LABS: PROTIME 34.3 Sec (11.9-14.9)
[2017-12-03] MEDS: MAGNESIUM HYDROXIDE 30ML CUP GTB (15:59)
[2017-12-03] MEDS: BISACODYL 10 MG SUPP PR (15:59)
[2017-12-03] MEDS: ERTAPENEM SODIUM 1 GM in SOD CHLORIDE 0.9% 100 ML IVPB (21:09)
[2017-12-04] MEDS: SUCRALFATE 1 GM TAB GTB ×4 (05:46→20:38)
[2017-12-04] MEDS: LANSOPRAZOLE 30 MG CAP GTB (05:46)
[2017-12-04] MEDS: BUMETANIDE 1 MG TAB GTB ×2 (05:46→17:23)
[2017-12-04 07:09] LABS: PROTIME 30.3 Sec (11.9-14.9); PT RATIO 2.4
[2017-12-04] MEDS: LINEZOLID 600 MG/D5W (PMX) 300 ML IVPB ×2 (09:04→20:38)
[2017-12-04] MEDS: SEVELAMER CARBONATE 0.8 GM PKT GTB ×3 (09:04→17:20)
[2017-12-04] MEDS: CALCIUM ACETATE 667 MG CAP GTB ×3 (09:04→17:20)
[2017-12-04] MEDS: LEVETIRACETAM (100 MG/ML) 5ML CUP GTB ×2 (09:04→20:38)
[2017-12-04] MEDS: SENNA TAB GTB (09:05)
[2017-12-04] MEDS: POTASSIUM CHLORIDE (SR) 20 MEQ TAB PO (09:05)
[2017-12-04] MEDS: LOSARTAN 50 MG TAB GTB (09:06)
[2017-12-04] MEDS: DIGOXIN 0.125 MG TAB GTB (12:43)
[2017-12-04] MEDS: BISACODYL 10 MG SUPP PR (15:43)
[2017-12-04] MEDS: MAGNESIUM HYDROXIDE 30ML CUP GTB (15:43)
[2017-12-04] MEDS ORDERED: VITAMIN A & D 5 GM OINT PACKET TOP (16:01)
[2017-12-04] MEDS: WARFARIN 2 MG TAB PO (17:20)
[2017-12-04] MEDS: ERTAPENEM SODIUM 1 GM in SOD CHLORIDE 0.9% 100 ML IVPB (20:41)
[2017-12-05] MEDS: LANSOPRAZOLE 30 MG CAP GTB (06:00)
[2017-12-05] MEDS: SUCRALFATE 1 GM TAB GTB ×4 (06:00→21:34)
[2017-12-05] MEDS: BUMETANIDE 1 MG TAB GTB ×2 (06:00→17:26)
[2017-12-05] MEDS: SENNA TAB GTB (09:00)
[2017-12-05] MEDS: LINEZOLID 600 MG/D5W (PMX) 300 ML IVPB ×2 (09:20→21:33)
[2017-12-05] MEDS: CALCIUM ACETATE 667 MG CAP GTB ×3 (09:21→17:26)
[2017-12-05] MEDS: SEVELAMER CARBONATE 0.8 GM PKT GTB ×3 (09:21→17:26)
[2017-12-05] MEDS: LEVETIRACETAM (100 MG/ML) 5ML CUP GTB ×2 (09:21→21:34)
[2017-12-05] MEDS: POTASSIUM CHLORIDE (SR) 20 MEQ TAB PO (09:21)
[2017-12-05] MEDS: LOSARTAN 50 MG TAB GTB (09:22)
[2017-12-05 09:40] LABS: PROTIME 27.7 Sec (11.9-14.9); PT RATIO 2.2
[2017-12-05] MEDS: DIGOXIN 0.125 MG TAB GTB (12:39)
[2017-12-05] MEDS: WARFARIN 2 MG TAB PO (17:26)
[2017-12-05] MEDS: ERTAPENEM SODIUM 1 GM in SOD CHLORIDE 0.9% 100 ML IVPB (21:33)
[2017-12-06] MEDS: SUCRALFATE 1 GM TAB GTB ×4 (05:21→20:09)
[2017-12-06] MEDS: BUMETANIDE 1 MG TAB GTB ×2 (05:21→17:47)
[2017-12-06] MEDS: LANSOPRAZOLE 30 MG CAP GTB (05:21)
[2017-12-06] MEDS: POTASSIUM CHLORIDE (SR) 20 MEQ TAB PO (09:00)
[2017-12-06] MEDS: SEVELAMER CARBONATE 0.8 GM PKT GTB ×3 (10:23→17:46)
[2017-12-06] MEDS: LEVETIRACETAM (100 MG/ML) 5ML CUP GTB ×2 (10:24→20:09)
[2017-12-06] MEDS: SENNA TAB GTB (10:24)
[2017-12-06] MEDS: CALCIUM ACETATE 667 MG CAP GTB ×3 (10:24→17:46)
[2017-12-06] MEDS: LOSARTAN 50 MG TAB GTB (10:25)
[2017-12-06] MEDS: LINEZOLID 600 MG/D5W (PMX) 300 ML IVPB ×2 (10:26→20:09)
[2017-12-06] MEDS: DIGOXIN 0.125 MG TAB GTB (14:23)
[2017-12-06] MEDS: WARFARIN 2 MG TAB PO (17:47)
[2017-12-06] MEDS: ERTAPENEM SODIUM 1 GM in SOD CHLORIDE 0.9% 100 ML IVPB (20:10)
[2017-12-07] MEDS: LANSOPRAZOLE 30 MG CAP GTB (05:22)
[2017-12-07] MEDS: BUMETANIDE 1 MG TAB GTB ×2 (05:22→17:18)
[2017-12-07] MEDS: SUCRALFATE 1 GM TAB GTB ×4 (05:22→21:03)
[2017-12-07] MEDS: SEVELAMER CARBONATE 0.8 GM PKT GTB ×3 (08:32→17:18)
[2017-12-07] MEDS: LINEZOLID 600 MG/D5W (PMX) 300 ML IVPB ×2 (08:32→21:04)
[2017-12-07] MEDS: LEVETIRACETAM (100 MG/ML) 5ML CUP GTB ×2 (08:33→21:03)
[2017-12-07] MEDS: LOSARTAN 50 MG TAB GTB (08:35)
[2017-12-07] MEDS: SENNA TAB GTB (08:35)
[2017-12-07] MEDS: CALCIUM ACETATE 667 MG CAP GTB ×3 (08:35→17:18)
[2017-12-07] MEDS: POTASSIUM CHLORIDE (SR) 20 MEQ TAB PO (08:35)
[2017-12-07 08:45] LABS: INR 2.97; PROTIME 31.8 Sec (11.9-14.9); PT RATIO 2.5
[2017-12-07] MEDS: DIGOXIN 0.125 MG TAB GTB (13:00)
[2017-12-07] MEDS: WARFARIN 2 MG TAB PO (17:18)
[2017-12-07] MEDS: ERTAPENEM SODIUM 1 GM in SOD CHLORIDE 0.9% 100 ML IVPB (21:04)
[2017-12-08] MEDS: BUMETANIDE 1 MG TAB GTB ×2 (06:20→17:14)
[2017-12-08] MEDS: SUCRALFATE 1 GM TAB GTB ×4 (06:20→21:43)
[2017-12-08] MEDS: LANSOPRAZOLE 30 MG CAP GTB (06:21)
[2017-12-08] MEDS: CALCIUM ACETATE 667 MG CAP GTB ×3 (06:22→17:14)
[2017-12-08] MEDS: SEVELAMER CARBONATE 0.8 GM PKT GTB ×3 (06:23→17:14)
[2017-12-08] MEDS: POTASSIUM CHLORIDE (SR) 20 MEQ TAB PO (08:23)
[2017-12-08] MEDS: SENNA TAB GTB (08:23)
[2017-12-08] MEDS: LOSARTAN 50 MG TAB GTB (08:23)
[2017-12-08] MEDS: LEVETIRACETAM (100 MG/ML) 5ML CUP GTB ×2 (08:23→21:43)
[2017-12-08] MEDS: LINEZOLID 600 MG/D5W (PMX) 300 ML IVPB ×2 (08:24→21:43)
[2017-12-08 09:39] LABS: INR 3.26; PROTIME 34.2 Sec (11.9-14.9); PT RATIO 2.7
[2017-12-08] MEDS: DIGOXIN 0.125 MG TAB GTB (12:37)
[2017-12-08] MEDS: WARFARIN 1 MG TAB PO (17:14)
[2017-12-08] MEDS: ERTAPENEM SODIUM 1 GM in SOD CHLORIDE 0.9% 100 ML IVPB (22:19)
[2017-12-09] MEDS: LANSOPRAZOLE 30 MG CAP GTB (06:04)
[2017-12-09] MEDS: SUCRALFATE 1 GM TAB GTB ×3 (06:04→17:03)
[2017-12-09] MEDS: BUMETANIDE 1 MG TAB GTB ×2 (06:04→17:03)
[2017-12-09] MEDS: SEVELAMER CARBONATE 0.8 GM PKT GTB ×3 (08:44→17:02)
[2017-12-09] MEDS: LEVETIRACETAM (100 MG/ML) 5ML CUP GTB (08:44)
[2017-12-09] MEDS: LINEZOLID 600 MG/D5W (PMX) 300 ML IVPB (08:44)
[2017-12-09] MEDS: POTASSIUM CHLORIDE (SR) 20 MEQ TAB PO (08:45)
[2017-12-09] MEDS: CALCIUM ACETATE 667 MG CAP GTB ×3 (08:45→17:02)
[2017-12-09] MEDS: LOSARTAN 50 MG TAB GTB (08:46)
[2017-12-09] MEDS: SENNA TAB GTB (08:46)
[2017-12-09 08:50] LABS: INR 2.58; PROTIME 28.4 Sec (11.9-14.9); PT RATIO 2.2
[2017-12-09] MEDS: DIGOXIN 0.125 MG TAB GTB (12:21)
[2017-12-09] MEDS: WARFARIN 1 MG TAB PO (17:03)
[2017-12-11] MEDS ORDERED: ROCURONIUM 50 MG INJ (16:38)
== END 2017-12-09 17:38 | DRG 870 ==
LOC: TEL 12-01 08:17 → E/R 12:11 → ICU 15:25
PROC: 5A1955Z Respiratory Ventilation, Greater than 96 Consecutive Hours (ICD-10-PCS; 2017-11-26)
PROC: 0W9G3ZX Drainage of Peritoneal Cavity, Percutaneous Approach, Diagnostic (ICD-10-PCS; principal; 2017-11-27)
PROC: 0DP6XUZ Removal of Feeding Device from Stomach, External Approach (ICD-10-PCS; 2017-11-28)
DX: A41.51 Sepsis due to Escherichia coli [E. coli] (principal); J18.9 Pneumonia, unspecified organism; G93.49 Other encephalopathy; I50.23 Acute on chronic systolic (congestive) heart failure; L89.154 Pressure ulcer of sacral region, stage 4; L03.311 Cellulitis of abdominal wall; N39.0 Urinary tract infection, site not specified; R18.8 Other ascites; J96.10 Chronic respiratory failure, unspecified whether with hypoxia or hypercapnia; I13.0 Hypertensive heart and chronic kidney disease with heart failure and stage 1 through stage 4 chronic kidney disease, or unspecified chronic kidney disease; E44.0 Moderate protein-calorie malnutrition; M86.9 Osteomyelitis, unspecified; Z68.1 Body mass index [BMI] 19.9 or less, adult; K94.22 Gastrostomy infection; D68.32 Hemorrhagic disorder due to extrinsic circulating anticoagulants; Z99.11 Dependence on respirator [ventilator] status; I85.10 Secondary esophageal varices without bleeding; K76.1 Chronic passive congestion of liver; K94.29 Other complications of gastrostomy; G40.909 Epilepsy, unspecified, not intractable, without status epilepticus; E11.22 Type 2 diabetes mellitus with diabetic chronic kidney disease; N18.9 Chronic kidney disease, unspecified; K59.00 Constipation, unspecified; R13.10 Dysphagia, unspecified; R19.7 Diarrhea, unspecified; Z66 Do not resuscitate; K94.21 Gastrostomy hemorrhage; Y83.8 Other surgical procedures as the cause of abnormal reaction of the patient, or of later complication, without mention of misadventure at the time of the procedure; Y92.128 Other place in nursing home as the place of occurrence of the external cause; Z95.2 Presence of prosthetic heart valve; Z93.0 Tracheostomy status
CPT/HCPCS: 36415; 71045; 74018; 74176; 80048; 80053; 81001; 82962; 83605; 83690; 83735; 83880; 84100; 84484; 85025; 85610; 85730; 87040; 87070; 87075; 87081; 87086; 87102; 87116; 89220; 93005; 93306; 94002; 94003; 96374; 99285-25

== ENCOUNTER → 2017-12-11 | Day surgery (SDC) | payer OTHER | END | disposition home or self-care (01) | LOC: GIL 11:05 | DX: Z43.1 Encounter for attention to gastrostomy (principal); I10 Essential (primary) hypertension; E78.5 Hyperlipidemia, unspecified; E11.9 Type 2 diabetes mellitus without complications; I25.10 Atherosclerotic heart disease of native coronary artery without angina pectoris; Z95.0 Presence of cardiac pacemaker | CPT/HCPCS: 43246 ==

== ENCOUNTER 2017-12-13 13:43 | Inpatient (IN) | payer OTHER ==
[~2017-12-13 13:43] MED LIST: CEFAZOLIN 1 GM INJ; ROCURONIUM 50 MG INJ
[2017-12-13] MEDS ORDERED: NA PHOSPHATE/BIPHOS 133 ML ENEMA PR (14:30)
[2017-12-13] MEDS ORDERED: BISACODYL 10 MG SUPP PR (14:30)
[2017-12-13] MEDS ORDERED: MAGNESIUM HYDROXIDE 30ML CUP PO (14:30)
[2017-12-13] MEDS: ACYCLOVIR PO ×3 (15:00→20:49)
[2017-12-13] MEDS ORDERED: NACL 0.9% 3 ML SYG IV (15:30)
[2017-12-13 16:05] LABS: HEMATOCRIT 20.9 % (37.0-47.0)
[2017-12-13] MEDS: SILVER NITRATE SWAB TOP (16:07)
[2017-12-13 16:11] LABS: HEMOGLOBIN 6.8 g/dl (12.0-16.0)
[2017-12-13] MEDS: BUMETANIDE 1 MG TAB GTB (16:54)
[2017-12-13] MEDS: CALCIUM ACETATE 667 MG CAP GTB (16:54)
[2017-12-13] MEDS: SEVELAMER CARBONATE 0.8 GM PKT GTB (16:54)
[2017-12-13] MEDS: PANTOPRAZOLE 40 MG INJ IV (17:51)
[2017-12-13 20:16] LABS: HEMATOCRIT 25.5 % (37.0-47.0); HEMOGLOBIN 8.6 g/dl (12.0-16.0)
[2017-12-13 20:31] LABS: Arterial Base Excess 2.3 mmol/L (-3.0-3); Arterial COHb 0.3 % (0.0-3.0); Arterial Fraction of Oxyhgb 97.4 % (93.0-99.0); Arterial HCO3 26.4 mmol/L (22.0-26.0); Arterial MetHb 0.3 % (0.0-1.5); Arterial Total Hemglobin 9.2 g/dl (12.0-18.0); Arterial pCO2 39.1 mmhg (35-45); MODE VENT - AC; Site Right Brachial
[2017-12-13] MEDS: MUPIROCIN 2% 22 GM OINT TOP (20:49)
[2017-12-13] MEDS: LEVETIRACETAM (100 MG/ML) 5ML CUP GTB (20:49)
[2017-12-13] MEDS: MICONAZOLE 2% 15 GM CR TOP (20:49)
[2017-12-14 03:02] LABS: HEMATOCRIT 23.8 % (37.0-47.0)
[2017-12-14 05:35] LABS: HEMATOCRIT 22.8 % (37.0-47.0); HEMOGLOBIN 7.7 g/dl (12.0-16.0)
[2017-12-14] MEDS: PANTOPRAZOLE 40 MG INJ IV ×2 (05:58→18:38)
[2017-12-14] MEDS: BUMETANIDE 1 MG TAB GTB ×2 (05:58→17:16)
[2017-12-14] MEDS ORDERED: LANSOPRAZOLE 30 MG CAP GTB (06:00)
[2017-12-14 06:02] LABS: CREATINE KINASE 38 IU/L (23-200)
[2017-12-14 06:02] LABS: INR 1.28; PROTIME 16.2 Sec (11.9-14.9); PT RATIO 1.3
[2017-12-14 06:06] LABS: ANION GAP 10 (8-16); BLOOD UREA NITROGEN 55 mg/dl (7-20); CALCIUM 8.7 mg/dl (8.4-10.2); CARBON DIOXIDE 26 mmol/L (21-31); CHLORIDE 104 mmol/L (97-110); CREATININE 0.65 mg/dl (0.44-1.00); GLUCOSE 78 mg/dl (70-220); POTASSIUM 4.3 mmol/L (3.5-5.1); SODIUM 136 mmol/L (135-144)
[2017-12-14] MEDS: CALCIUM ACETATE 667 MG CAP GTB ×3 (07:35→14:22)
[2017-12-14] MEDS: SEVELAMER CARBONATE 0.8 GM PKT GTB ×3 (07:35→14:22)
[2017-12-14] MEDS: LEVETIRACETAM (100 MG/ML) 5ML CUP GTB ×2 (08:09→21:00)
[2017-12-14] MEDS: ACYCLOVIR PO ×5 (08:09→21:00)
[2017-12-14] MEDS: LOSARTAN 50 MG TAB GTB (08:09)
[2017-12-14] MEDS: POTASSIUM CHLORIDE 20 MEQ POWDER FOR ORAL SOLN GTB (08:09)
[2017-12-14] MEDS: SENNA TAB GTB (08:09)
[2017-12-14] MEDS: BALSAM PERU/CASTOR OIL 60 GM TUBE TOP (10:04)
[2017-12-14] MEDS: MICONAZOLE 2% 15 GM CR TOP ×2 (10:04→21:10)
[2017-12-14] MEDS: MUPIROCIN 2% 22 GM OINT TOP ×2 (10:04→21:09)
[2017-12-14] MEDS: DIGOXIN 0.125 MG TAB GTB (12:32)
[2017-12-14] MEDS: DAPTOMYCIN IVPB (12:32)
[2017-12-14] MEDS: SOD CHLORIDE 0.9% IVPB (12:32)
[2017-12-14] MEDS: METOPROLOL 5 MG INJ IV (21:11)
[2017-12-14] MEDS ORDERED: DILTIAZEM 25 MG INJ IV (22:00)
[2017-12-14] MEDS: AMIODARONE 150MG/D5W BOLUS 100 ML IV (22:32)
[2017-12-14] MEDS: DIGOXIN 500 MCG INJ IV (23:34)
[2017-12-15] MEDS: AMIODARONE 900 MG in DEXTROSE 5% 482 ML IV (01:20)
[2017-12-15] MEDS ORDERED: PENDING SANTYL ORDER FOR WOUND CARE XX (05:30)
[2017-12-15] MEDS: BUMETANIDE 1 MG TAB GTB ×2 (06:00→12:17)
[2017-12-15] MEDS: PANTOPRAZOLE 40 MG INJ IV ×2 (06:03→18:39)
[2017-12-15] MEDS: SEVELAMER CARBONATE 0.8 GM PKT GTB ×3 (07:35→12:18)
[2017-12-15] MEDS: CALCIUM ACETATE 667 MG CAP GTB ×3 (07:35→12:18)
[2017-12-15] MEDS: LEVETIRACETAM (100 MG/ML) 5ML CUP GTB ×2 (08:28→21:48)
[2017-12-15] MEDS: LOSARTAN 50 MG TAB GTB (08:28)
[2017-12-15] MEDS: ACYCLOVIR PO ×4 (08:28→18:00)
[2017-12-15] MEDS: SENNA TAB GTB (08:28)
[2017-12-15] MEDS: POTASSIUM CHLORIDE 20 MEQ POWDER FOR ORAL SOLN GTB (08:28)
[2017-12-15] MEDS: MUPIROCIN 2% 22 GM OINT TOP ×2 (08:30→21:50)
[2017-12-15] MEDS: MICONAZOLE 2% 15 GM CR TOP (08:30)
[2017-12-15 09:20] LABS: ADD MAN DIFF? NO
[2017-12-15] MEDS: BALSAM PERU/CASTOR OIL 60 GM TUBE TOP (09:24)
[2017-12-15 09:28] LABS: WHITE BLOOD COUNT 3.4 10^3/ul (4.8-10.8)
[2017-12-15 09:28] LABS: ABNORMAL IP MESSAGE 1; BASOPHILS % 0.9 % (0.0-2.0); EOSINOPHILS # 0.1 10^3/ul (0.0-0.5); EOSINOPHILS % 2.1 % (0.0-7.0); HEMATOCRIT 20.8 % (37.0-47.0); LYMPHOCYTES # 0.6 10^3/ul (0.8-2.9); LYMPHOCYTES % 17.5 % (15.0-51.0); MEAN CORPUSCULAR HEMOGLOBIN 30.1 pg (29.0-33.0); MEAN CORPUSCULAR HGB CONC 33.2 g/dl (32.0-37.0); MEAN CORPUSCULAR VOLUME 90.8 fl (82.0-101.0); MEAN PLATELET VOLUME 11.8 fl (7.4-10.4); MONOCYTE # 0.3 10^3/ul (0.3-0.9); MONOCYTES % 10.1 % (0.0-11.0); NEUTROPHIL # 2.3 10^3/ul (1.6-7.5); NEUTROPHILS % 68.5 % (39.0-77.0); PLATELET COUNT 47 10^3/UL (140-415); RED BLOOD COUNT 2.29 10^6/ul (4.20-5.40); RED CELL DISTRIBUTION WIDTH 16.3 % (11.5-14.5)
[2017-12-15 09:38] LABS: HEMOGLOBIN 6.9 g/dl (12.0-16.0); POSITIVE DIFF @See below
[2017-12-15 09:52] LABS: BLOOD UREA NITROGEN 64 mg/dl (7-20); CALCIUM 8.8 mg/dl (8.4-10.2); CARBON DIOXIDE 22 mmol/L (21-31); CHLORIDE 108 mmol/L (97-110); CREATININE 0.59 mg/dl (0.44-1.00); GLUCOSE 93 mg/dl (70-220); MAGNESIUM 2.1 mg/dl (1.7-2.5); POTASSIUM 4.2 mmol/L (3.5-5.1)
[2017-12-15 10:20] LABS: ANION GAP 13 (8-16); SODIUM 139 mmol/L (135-144)
[2017-12-15 10:42] LABS: INR 1.22; PROTIME 15.6 Sec (11.9-14.9); PT RATIO 1.2
[2017-12-15 10:43] LABS: PARTIAL THROMBOPLASTIN TIME 42.4 Sec (25.0-35.0)
[2017-12-15] MEDS: DIGOXIN 0.125 MG TAB GTB (12:17)
[2017-12-15] MEDS: DAPTOMYCIN IVPB (13:11)
[2017-12-15] MEDS: SOD CHLORIDE 0.9% IVPB (13:11)
[2017-12-15] MEDS: SOD CHLORIDE 0.9% 250 ML IV* (14:48)
[2017-12-15 15:25] LABS: TYPE AND SCREEN 1
[2017-12-15] MEDS ORDERED: morphine 2 MG INJ IV (16:30)
[2017-12-15] MEDS ORDERED: EPHEDrine SULFATE 50 MG/5 ML SYG IV (16:30)
[2017-12-15] MEDS ORDERED: LABETALOL HCL 20MG INJ IV (16:30)
[2017-12-15 16:57] LABS: IMMEDIATE SPIN CROSSMATCH 1 2
[2017-12-16 05:22] LABS: ADD MAN DIFF? NO
[2017-12-16 05:27] LABS: WHITE BLOOD COUNT 2.9 10^3/ul (4.8-10.8)
[2017-12-16 05:27] LABS: ABNORMAL IP MESSAGE 1; EOSINOPHILS # 0.1 10^3/ul (0.0-0.5); EOSINOPHILS % 3.1 % (0.0-7.0); HEMATOCRIT 19.9 % (37.0-47.0); LYMPHOCYTES # 0.4 10^3/ul (0.8-2.9); LYMPHOCYTES % 15.2 % (15.0-51.0); MEAN CORPUSCULAR HEMOGLOBIN 29.1 pg (29.0-33.0); MEAN CORPUSCULAR HGB CONC 32.7 g/dl (32.0-37.0); MEAN CORPUSCULAR VOLUME 89.2 fl (82.0-101.0); MEAN PLATELET VOLUME 12.2 fl (7.4-10.4); MONOCYTE # 0.6 10^3/ul (0.3-0.9); MONOCYTES % 19.7 % (0.0-11.0); NEUTROPHIL # 1.8 10^3/ul (1.6-7.5); NEUTROPHILS % 60.3 % (39.0-77.0); PLATELET COUNT 34 10^3/UL (140-415); RED BLOOD COUNT 2.23 10^6/ul (4.20-5.40); RED CELL DISTRIBUTION WIDTH 16.1 % (11.5-14.5)
[2017-12-16] MEDS: BUMETANIDE 1 MG TAB GTB (05:40)
[2017-12-16] MEDS: PANTOPRAZOLE 40 MG INJ IV (05:40)
[2017-12-16 05:48] LABS: ANION GAP 14 (8-16); BLOOD UREA NITROGEN 58 mg/dl (7-20); CALCIUM 8.6 mg/dl (8.4-10.2); CARBON DIOXIDE 23 mmol/L (21-31); CHLORIDE 111 mmol/L (97-110); CREATININE 0.66 mg/dl (0.44-1.00); GLUCOSE 86 mg/dl (70-220); POTASSIUM 3.7 mmol/L (3.5-5.1); SODIUM 144 mmol/L (135-144)
[2017-12-16 05:54] LABS: POSITIVE DIFF @See below
[2017-12-16 05:59] LABS: HEMOGLOBIN 6.5 g/dl (12.0-16.0)
[2017-12-16] MEDS: SEVELAMER CARBONATE 0.8 GM PKT GTB ×2 (07:35→11:16)
[2017-12-16] MEDS: CALCIUM ACETATE 667 MG CAP GTB ×2 (07:35→11:16)
[2017-12-16] MEDS: ACYCLOVIR PO ×4 (09:23→15:00)
[2017-12-16] MEDS: SENNA TAB GTB (09:24)
[2017-12-16] MEDS: LEVETIRACETAM (100 MG/ML) 5ML CUP GTB (09:24)
[2017-12-16] MEDS: POTASSIUM CHLORIDE 20 MEQ POWDER FOR ORAL SOLN GTB (09:24)
[2017-12-16] MEDS: LOSARTAN 50 MG TAB GTB (09:24)
[2017-12-16] MEDS: MUPIROCIN 2% 22 GM OINT TOP (09:25)
[2017-12-16] MEDS: BALSAM PERU/CASTOR OIL 60 GM TUBE TOP (09:26)
[2017-12-16] MEDS: DAPTOMYCIN IVPB (12:12)
[2017-12-16] MEDS: SOD CHLORIDE 0.9% IVPB (12:12)
[2017-12-16] MEDS: DIGOXIN 0.125 MG TAB GTB (12:13)
== END 2017-12-16 17:30 | DRG 326 ==
LOC: ICU 13:43
PROC: 0DW64UZ Revision of Feeding Device in Stomach, Percutaneous Endoscopic Approach (ICD-10-PCS; principal; 2017-12-15 16:30)
PROC: 30233N1 Transfusion of Nonautologous Red Blood Cells into Peripheral Vein, Percutaneous Approach (ICD-10-PCS; 2017-12-15 16:30)
PROC: 30233R1 Transfusion of Nonautologous Platelets into Peripheral Vein, Percutaneous Approach (ICD-10-PCS; 2017-12-15 16:30)
PROC: 5A1945Z Respiratory Ventilation, 24-96 Consecutive Hours (ICD-10-PCS; 2017-12-15 16:30)
DX: K94.21 Gastrostomy hemorrhage (principal); G93.40 Encephalopathy, unspecified; J96.10 Chronic respiratory failure, unspecified whether with hypoxia or hypercapnia; Z99.11 Dependence on respirator [ventilator] status; I13.0 Hypertensive heart and chronic kidney disease with heart failure and stage 1 through stage 4 chronic kidney disease, or unspecified chronic kidney disease; I50.22 Chronic systolic (congestive) heart failure; I85.10 Secondary esophageal varices without bleeding; D62 Acute posthemorrhagic anemia; M46.28 Osteomyelitis of vertebra, sacral and sacrococcygeal region; L03.311 Cellulitis of abdominal wall; R18.8 Other ascites; I09.1 Rheumatic diseases of endocardium, valve unspecified; Z95.2 Presence of prosthetic heart valve; Z93.0 Tracheostomy status; E11.22 Type 2 diabetes mellitus with diabetic chronic kidney disease; N18.9 Chronic kidney disease, unspecified; L89.150 Pressure ulcer of sacral region, unstageable; I48.91 Unspecified atrial fibrillation; K74.60 Unspecified cirrhosis of liver; I25.10 Atherosclerotic heart disease of native coronary artery without angina pectoris; Z87.11 Personal history of peptic ulcer disease; B00.1 Herpesviral vesicular dermatitis; G40.909 Epilepsy, unspecified, not intractable, without status epilepticus; R13.10 Dysphagia, unspecified; Z95.0 Presence of cardiac pacemaker; K59.00 Constipation, unspecified; Z79.01 Long term (current) use of anticoagulants; Z66 Do not resuscitate; Z79.4 Long term (current) use of insulin
CPT/HCPCS: 36430; 36600; 74176; 76705; 80048; 82550; 82803; 83735; 85014; 85018; 85025; 85610; 85730; 86644; 86850; 86900; 86901; 86920; 86945; 87081; 94002; 94003